=== PATIENT | female | born 1995 | race Caucasian/White ===

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

== ENCOUNTER → 2018-06-14 | Outpatient (CLI) | payer OTHER ==
--- NOTE | 2018-06-14 11:59 | US ---
EXAMINATION TYPE: Transabdominal DATE OF EXAM: 06/14/2018 10:35 AM COMPARISON: NONE CLINICAL HISTORY: O46.91 BLEEDING/SPOTTING. spotting x 1 day, red in color, no pain, A1 EXAM PERFORMED: OBTA EXAM MEASUREMENTS: GESTATIONAL AGE / DATING Physician Established: (8 weeks/4 days) EDC: 01/20/2019 Dates by LMP: (8 weeks/4 days) EDC: 01/20/2019 Dates by First Scan: No previous here Dates by Current Scan for: (8 weeks/1 days) EDC: 01/23/2019 MATERNAL ANATOMY Uterus: 7.0 x 6.3 x 3.7cm Right Ovary: 3.0 x 2.9 x 2.9cm Left Ovary: 2.9 x 2.0 x 2.1cm Post CDS / Adnexa: wnl Presence of free fluid: no Presence of corpus luteal cyst: no Presence of subchorionic bleed: no GESTATION / SURVEY CRL: 1.7cm (8 weeks/1 days) MSD: wnl Yolk Sac (normal less than 6mm): 0.2cm Heart Rate: 161 bpm Rhythm: Normal IUP: Viable IUP Date of LMP: 04/15/2018 Beta HcG (if available): not available *tech impression to voice mail at office and sent patient back to office. IMPRESSION: Single viable intrauterine corresponding to ultrasound age 8 weeks 1 day with estimated kev e of delivery 01/23/2019
== END ==
LOC: RADUSWWP 10:15
PROVIDERS: ATTEND Obstetrics & Gynecology
DX: O20.0 Threatened abortion (principal)
CPT/HCPCS: 36415; 76801; 84702; 86850; 86900; 86901

== ENCOUNTER 2018-06-20 01:35 | Emergency (ER) | payer OTHER ==
[2018-06-20 01:54] VITALS: RESP 16; TEMP 98.1
--- NOTE | 2018-06-20 02:04 | ED ---
General Adult HPI - General Chief complaint: Vaginal Bleeding Stated complaint: 9 Weeks Spotting Cramping Source: patient Mode of arrival: ambulatory Limitations: no limitations - History of Present Illness Initial comments: Kayla is a female currently 9w3d with single intrauterine who presents today for evaluation of persistent vaginal bleeding and cramping. Patient reports that she's had vaginal bleeding for 8 days, she was evaluated in our ER 6 days ago which time ultrasound confirms single intrauterine at 8 weeks and 1 day. Patient reports that since that time she's had persistent bleeding but today she had worsening cramping and begin passing larger clots. This prompted the patient come back to the ER for evaluation. Patient has been one time before, she miscarried in her fourth week of with her previous . Patient denies any dysuria or hematuria. She denies any change in bowel or b ladder habits. She had her first visit with [facility] [employer] [facility] earlier this month, she contacted them earlier today and advised them of her persistent bleeding and they stated that based on having a ultrasound last week she didn't require repeat ultrasound. - Related Data Home Medications Medication Instructions Recorded Confirmed 114/Iron A-G/Folate 1 1 each PO DAILY 06/20/18 06/20/18 [Prenate Elite Tablet] Allergies Allergy/AdvReac Type Severity Reaction Status Date / Time cinnamon Allergy Unknown Verified 06/20/18 01:54 morphine AdvReac Nausea & Verified 06/20/18 01:54 Vomiting Review of Systems ROS Statement: Those systems with pertinent positive or pertinent negative responses have been documented in the HPI. ROS Other: All systems not noted in ROS Statement are negative. Past Medical History Past Medical History: Asthma Additional Past Medical History / Comment(s): UTI, migraine History of Any Multi-Drug Resistant Organisms: None Reported Past Surgical History: Tonsillectomy Past Anesthesia/Blood Transfusion Reactions: No Reported Reaction Past Psychological History: Anxiety, Depression, Schizophrenia Smoking Status: Current every day smoker Past Alcohol Use History: None Reported Past Drug Use History: None Reported - Past Family History Father Family Medical History: No Reported History Additional Family Medical History / Comment(s): Father is healthy Mother Family Medical History: No Reported History Additional Family Medical History / Comment(s): Mother is healthy General Exam - General Exam Comments Initial Comments: Physical Exam GENERAL: Patient is well-developed and well-nourished. Patient is nontoxic and well- hydrated and is in no distress. HENT: Normocephalic, Atraumatic. EYES: PERRL, EOMI PULMONARY: Unlabored respirations. No audible rales rhonchi or wheezing was noted. CARDIOVASCULAR: There is a regular rate and rhythm without any murmurs gallops or rubs. ABDOMEN: Soft and nontender with normal bowel sounds. SKIN: Skin is clear with no lesions or rashes and otherwise unremarkable. : Normal external genitalia Dark blood in the vaginal vault, products of conception in the vaginal vault, os is open 1 cm NEUROLOGIC: Patient is alert and oriented x3. Moving all extremities spontaneously MUSCULOSKELETAL: Normal extremities with adequate strength and full range of motion. No lower extremity swelling or edema. No calf tenderness. PSYCHIATRIC: Normal psychiatric evaluation. Limitations: no limitations Limitations: no limitations Course Vital Signs 06/20/18 06/20/18 01:50 03:22 Temperature 98.1 F Pulse Rate 65 81 Respiratory 16 16 Rate Blood Pressure 97/62 113/72 O2 Sat by Pulse 100 Oximetry Medical Decision Making - Medical Decision Making Patient was seen and evaluated history was obtained from the patient and review of medical record Repeat beta-hCG was ordered Bedside ultrasound did not reveal any obvious gestational sac Pelvic exam was performed approximately one hour after initial ultrasound Patient reports that she had severe cramping after the ultrasound however she is more comfortable now. She's been laying in bed. Upon placing the vaginal speculum in the vaginal vault products of conception were noted to be in the vaginal vault. They were removed. Cervical os is open to approximately 1 cm, at this time I advised the patient that she's likely miscarried. Advised that she will probably have continued vaginal bleeding similar to a heavy period. Advised her to follow-up for her formal ultrasound as scheduled and to follow-up with her solid surface fabricator. All questions pertaining care were answered return parameters were discussed patient was discharged home in stable condition. - Lab Data Lab Results 06/20/18 06/20/18 Range/Units 02:25 02:25 HCG, Quant 9101.3 mIU/mL Urine Color Light Yellow Urine Appearance Clear (Clear) Urine pH 6.0 (5.0-8.0) Ur Specific [place] 1.007 (1.001-1.035) Urine Protein Negative (Negative) Urine Glucose (UA) Negative (Negative) Urine Ketones Negative (Negative) Urine Blood Moderate H (Negative) Urine Nitrite Negative (Negative) Urine Bilirubin Negative (Negative) Urine Urobilinogen <2.0 (<2.0) mg/dL Ur Leukocyte Esterase Small H (Negative) Urine RBC 70 H (0-5) /hpf Urine WBC 2 (0-5) /hpf Ur Squamous Epith Cells <1 (0-4) /hpf Urine Bacteria Rare H (None) /hpf Urine Mucus Rare H (None) /hpf Disposition Clinical Impression: Miscarriage Disposition: HOME SELF-CARE Condition: Stable Instructions (If sedation given, give patient instructions): Miscarriage (ED) Is patient prescribed a controlled substance at d/c from ED?: No Referrals: Ofelia Lara DO [Primary Care Provider] - 1-2 days
[2018-06-20 03:11] LABS: Appearance,Urine Clear (Clear); Bacteria,Urine Rare /hpf; Bilirubin,Urine Negative (Negative); Blood,Urine Moderate (Negative); Color,Urine Light Yellow; Glucose,Urine (UA) Negative (Negative); Ketones,Urine Negative (Negative); Leukocyte Esterase,Urine Small (Negative); Mucus,Urine Rare /hpf; Nitrite,Urine Negative (Negative); Protein,Urine Negative (Negative); RBC,Urine 70 /hpf (0-5); Specific Gravity,Urine 1.007 (1.001-1.035); Squamous Epithelial Cell,Urine <1 /hpf (0-4); Urobilinogen,Urine <2.0 mg/dL (<2.0); WBC,Urine 2 /hpf (0-5)
[2018-06-20 03:24] VITALS: BP 113/72; PULSE 81
== END 2018-06-20 03:30 | disposition home or self-care (01) ==
LOC: EC 01:35
DX: O03.9 Complete or unspecified spontaneous abortion without complication (principal); F17.200 Nicotine dependence, unspecified, uncomplicated; Z88.5 Allergy status to narcotic agent; Z91.018 Allergy to other foods
CPT/HCPCS: 36415; 81001; 84702; 99284

== ENCOUNTER → 2018-07-01 | Outpatient (CLI) | payer OTHER | END | disposition home or self-care (01) | LOC: LABWHC1 10:15 | PROVIDERS: ATTEND Obstetrics & Gynecology | DX: O03.9 Complete or unspecified spontaneous abortion without complication (principal) | CPT/HCPCS: 36415; 84702 ==

== ENCOUNTER 2018-11-15 18:55 | Emergency (ER) | payer OTHER ==
[2018-11-15 19:04] VITALS: PULSE 100
--- NOTE | 2018-11-15 20:05 | ED ---
Female Urogenital HPI - General Chief complaint: Vaginal Bleeding Stated complaint: /bleeding Source: patient Mode of arrival: ambulatory Limitations: no limitations - History of Present Illness Initial comments: A2 23-year-old female presenting today for chief complaint of bleeding in . She states the past 2-3 days she has had light spotting. Today she states is slightly heavier. She states is bright red blood. Patient was concerned as she has had 2 previous miscarriages that she was having a spontaneous and presents emergency department for evaluation. Patient states she does not have significant pain she states at times there is mild cramping this is not unilateral or severe. Patient denies any back pain vomiting diarrhea fevers or any other concerning signs or symptoms. Patient states she has established care with Dr. Ramirez, and has an already confirmed intrauterine outpatient. Patient states she had an ultrasound last week which measured 7 weeks. Remaining review of system negative patient denies dysuria urgency frequency. Upon arrival patient appears well no signs of acute distress. Vital signs within acceptable limits. - Related Data Home Medications Medication Instructions Recorded Confirmed 114/Iron A-G/Folate 1 1 each PO DAILY 06/20/18 06/20/18 [Prenate Elite Tablet] Allergies Allergy/AdvReac Type Severity Reaction Status Date / Time cinnamon Allergy Unknown Verified 11/15/18 19:04 morphine AdvReac Nausea & Verified 11/15/18 19:04 Vomiting Review of Systems ROS Statement: Those systems with pertinent positive or pertinent negative responses have been documented in the HPI. ROS Other: All systems not noted in ROS Statement are negative. Past Medical History Past Medical History: Asthma, Thyroid Disorder Additional Past Medical History / Comment(s): UTI, migraine History of Any Multi-Drug Resistant Organisms: None Reported Past Surgical History: Tonsillectomy Past Anesthesia/Blood Transfusion Reactions: No Reported Reaction Past Psychological History: Anxiety, Depression, Schizophrenia Smoking Status: Current every day smoker Past Alcohol Use History: None Reported Past Drug Use History: None Reported - Past Family History Father Family Medical History: No Reported History Additional Family Medical History / Comment(s): Father is healthy Mother Family Medical History: No Reported History Additional Family Medical History / Comment(s): Mother is healthy General Exam - General Exam Comments Initial Comments: General: The patient is awake and alert, in no distress, and does not appear acutely ill. Eye: Pupils are equal, round and reactive to light, extra-ocular movements are intact. No nystagmus. There is normal conjunctiva bilaterally. No signs of icterus. Ears, nose, mouth and throat: There are moist mucous membranes and no oral lesions. Neck: The neck is supple, there is no tenderness or JVD. Cardiovascular: There is a regular rate and rhythm. No murmur, rub or gallop is appreciated. Respiratory: Lungs are clear to auscultation, respirations are non-labored, breath sounds are equal. No wheezes, stridor, rales, or rhonchi. Gastrointestinal: Soft, non-distended, non-tender abdomen without masses or organomegaly noted. There is no rebound or guarding present. Pelvic: No external lesions scant amount of blood in vaginal vault. Os closed. No cervical motion or adnexal tenderness. No vaginal discharge or vaginal orders. Musculoskeletal: Normal ROM, no tenderness. Strength 5/5. Sensation intact. Pulses equal bilaterally 2+. Neurological: A&O x 3. CN II-XII intact, There are no obvious motor or sensory deficits. Coordination appears grossly intact. Speech is normal. Skin: Skin is warm and dry and no rashes or lesions are noted. Psychiatric: Cooperative, appropriate mood & affect, normal judgment. Limitations: no limitations Course Vital Signs 11/15/18 11/15/18 19:01 21:37 Temperature 99.3 F 99 F Pulse Rate 100 100 Respiratory 18 70 H Rate Blood Pressure 110/74 93/58 O2 Sat by Pulse 99 99 Oximetry Medical Decision Making - Medical Decision Making 23-year-old female presenting for evaluation of vaginal bleeding. Subchorionic hemorrhage on ultrasound. Otherwise no complicated processing at this time. HCG increasing from previous values. No evidence of ectopic . Patient has no significant pain. Patient has no pain on bimanual or pelvic examination. Patient has had outpatient STI testing. Patient has established [facility] MAKER. At this time feel the subchorionic hemorrhage as a cause of bleeding. We discussed threatened . I discussed the importance of follow-up with Dr. Ramirez return for increasing pain or heavy bleeding. Patient verbalized understanding and was discharged appearing well,hemodynamically stable. - Lab Data Result diagrams: 11/15/18 19:55 11/15/18 19:55 Lab Results 08/16/19 08/16/19 08/16/19 Range/Units 19:55 19:55 19:55 WBC 7.4 (3.8-10.6) k/uL RBC 4.34 (3.80-5.40) m/uL Hgb 12.6 (11.4-16.0) gm/dL Hct 38.0 (34.0-46.0) % MCV 87.5 (80.0-100.0) fL MCH 28.9 (25.0-35.0) pg MCHC 33.0 (31.0-37.0) g/dL RDW 12.6 (11.5-15.5) % Plt Count 186 (150-450) k/uL Neutrophils % 59 % Lymphocytes % 33 % Monocytes % 4 % Eosinophils % 2 % Basophils % 1 % Neutrophils # 4.3 (1.3-7.7) k/uL Lymphocytes # 2.4 (1.0-4.8) k/uL Monocytes # 0.3 (0-1.0) k/uL Eosinophils # 0.1 (0-0.7) k/uL Basophils # 0.1 (0-0.2) k/uL Sodium 140 (137-145) mmol/L Potassium 3.8 (3.5-5.1) mmol/L Chloride 105 (98-107) mmol/L Carbon Dioxide 25 (22-30) mmol/L Anion Gap 10 mmol/L BUN 6 L (7-17) mg/dL Creatinine 0.59 (0.52-1.04) mg/dL Est GFR (CKD-EPI)AfAm >90 (>60 ml/min/1.73 sqM) Est GFR (CKD-EPI)NonAf >90 (>60 ml/min/1.73 sqM) Glucose 91 (74-99) mg/dL Calcium 9.4 (8.4-10.2) mg/dL Total Bilirubin 0.4 (0.2-1.3) mg/dL AST 22 (14-36) U/L ALT 18 (9-52) U/L Alkaline Phosphatase 66 (38-126) U/L Total Protein 7.3 (6.3-8.2) g/dL Albumin 4.6 (3.5-5.0) g/dL HCG, Quant 17245.9 mIU/mL Urine Color Urine Appearance (Clear) Urine pH (5.0-8.0) Ur Specific [place] (1.001-1.035) Urine Protein (Negative) Urine Glucose (UA) (Negative) Urine Ketones (Negative) Urine Blood (Negative) Urine Nitrite (Negative) Urine Bilirubin (Negative) Urine Urobilinogen (<2.0) mg/dL Ur Leukocyte Esterase (Negative) Urine RBC (0-5) /hpf Urine WBC (0-5) /hpf Ur Squamous Epith Cells (0-4) /hpf Urine Bacteria (None) /hpf Urine Mucus (None) /hpf Blood Type A Positive Blood Type Recheck No Antibody Screen NEGATIVE Spec Expiration Date 11/18/2018 - 235411/15/18 Range/Units Unknown WBC (3.8-10.6) k/uL RBC (3.80-5.40) m/uL Hgb (11.4-16.0) gm/dL Hct (34.0-46.0) % MCV (80.0-100.0) fL MCH (25.0-35.0) pg MCHC (31.0-37.0) g/dL RDW (11.5-15.5) % Plt Count (150-450) k/uL Neutrophils % % Lymphocytes % % Monocytes % % Eosinophils % % Basophils % % Neutrophils # (1.3-7.7) k/uL Lymphocytes # (1.0-4.8) k/uL Monocytes # (0-1.0) k/uL Eosinophils # (0-0.7) k/uL Basophils # (0-0.2) k/uL Sodium (137-145) mmol/L Potassium (3.5-5.1) mmol/L Chloride (98-107) mmol/L Carbon Dioxide (22-30) mmol/L Anion Gap mmol/L BUN (7-17) mg/dL Creatinine (0.52-1.04) mg/dL Est GFR (CKD-EPI)AfAm (>60 ml/min/1.73 sqM) Est GFR (CKD-EPI)NonAf (>60 ml/min/1.73 sqM) Glucose (74-99) mg/dL Calcium (8.4-10.2) mg/dL Total Bilirubin (0.2-1.3) mg/dL AST (14-36) U/L ALT (9-52) U/L Alkaline Phosphatase (38-126) U/L Total Protein (6.3-8.2) g/dL Albumin (3.5-5.0) g/dL HCG, Quant mIU/mL Urine Color Light Yellow Urine Appearance Clear (Clear) Urine pH 7.0 (5.0-8.0) Ur Specific [place] 1.007 (1.001-1.035) Urine Protein Negative (Negative) Urine Glucose (UA) Negative (Negative) Urine Ketones Negative (Negative) Urine Blood Small H (Negative) Urine Nitrite Negative (Negative) Urine Bilirubin Negative (Negative) Urine Urobilinogen <2.0 (<2.0) mg/dL Ur Leukocyte Esterase Negative (Negative) Urine RBC <1 (0-5) /hpf Urine WBC 2 (0-5) /hpf Ur Squamous Epith Cells 1 (0-4) /hpf Urine Bacteria Rare H (None) /hpf Urine Mucus Rare H (None) /hpf Blood Type Blood Type Recheck Antibody Screen Spec Expiration Date Disposition Clinical Impression: Subchorionic bleed, Vaginal bleeding during Disposition: HOME SELF-CARE Condition: Good Instructions (If sedation given, give patient instructions): Subchorionic Hemorrhage (ED) Additional Instructions: Please use medication as discussed. Please follow-up with OBGYN next week. Please return to emergency room if the symptoms increase or worsen or for any other concerns. Is patient prescribed a controlled substance at d/c from ED?: No Referrals: Ofelia Lara DO [Primary Care Provider] - 1-2 days Jennifer Ramirez MD [STAFF PHYSICIAN] - 1-2 days Time of Disposition: 21:12
[2018-11-15 20:07] LABS: Basophils # (A) 0.1 k/uL (0-0.2); Basophils % (A) 1 %; Eosinophils # (A) 0.1 k/uL (0-0.7); Eosinophils % (A) 2 %; HGB 12.6 gm/dL (11.4-16.0); Lymphocytes # (A) 2.4 k/uL (1.0-4.8); Lymphocytes % (A) 33 %; MCH 28.9 pg (25.0-35.0); MCV 87.5 fL (80.0-100.0); Mean Platelet Volume 7.5; Monocytes # (A) 0.3 k/uL (0-1.0); Monocytes % (A) 4 %; Neutrophils # (A) 4.3 k/uL (1.3-7.7); Neutrophils % (A) 59 %; Platelet Count 186 k/uL (150-450); RBC 4.34 m/uL (3.80-5.40); RDW 12.6 % (11.5-15.5); WBC 7.4 k/uL (3.8-10.6)
[2018-11-15 20:17] LABS: ALT 18 U/L (9-52); AST 22 U/L (14-36); African American GFR (CKD) >90 (>60 ml/min/1.73 sqM); Albumin 4.6 g/dL (3.5-5.0); Alkaline Phosphatase 66 U/L (38-126); Anion Gap 10 mmol/L; Blood Urea Nitrogen 6 mg/dL (7-17); Calcium 9.4 mg/dL (8.4-10.2); Carbon Dioxide 25 mmol/L (22-30); Chloride 105 mmol/L (98-107); Glucose 91 mg/dL (74-99); Potassium 3.8 mmol/L (3.5-5.1); Sodium 140 mmol/L (137-145); Total Bilirubin 0.4 mg/dL (0.2-1.3); Total Protein 7.3 g/dL (6.3-8.2)
[2018-11-15 20:56] LABS: HCG,Quantitative Serum 19631.9 mIU/mL
--- NOTE | 2018-11-15 21:09 | US ---
EXAMINATION TYPE: OB <= 14 wk transvag DATE OF EXAM: 11/15/2018 8:49 PM COMPARISON: NONE CLINICAL HISTORY: Vaginal bleeding x 3 days in ; ; smoker EXAM PERFORMED: Transabdominal (TA) with limited supplemental TV US pictures to assess CRL. EXAM MEASUREMENTS: GESTATIONAL AGE / DATING Physician Established: (8 weeks/3 days) EDC: 06/24/2019 Dates by LMP: (8 weeks/3 days) EDC: 06/24/2019 Dates by First Scan: No previous. Dates by Current Scan for: (7 weeks/6 days) EDC: 06/28/2019 MATERNAL ANATOMY Uterus: 8.2 x 4.8 x 4.4cm Right Ovary: 2.5 x 2.0 x 1.4cm Left Ovary: 3.9 x 1.7 x 1.9cm Post CDS / Adnexa: wnl Presence of free fluid: no Presence of corpus luteal cyst: in left ovary = 2.3 x1.8 x 1.7cm Presence of subchorionic bleed: yes, superior to gestational sac = 0.7x 0.3 x 0.2cm ; multiple small cysts seen mid decidual area with largest = 0.4 x 0.4 x 0.2cm. GESTATION / SURVEY CRL: 1.5cm (7 weeks/6 days) Yolk Sac (normal less than 6mm): 3.0mm Heart Rate: 176 bpm TV US Rhythm: Normal IUP: single Date of LMP: 09/17/2018 Beta HcG (if available): NA Single, live IUP, 7 weeks/6 days, EDC: 06/28/2019, HR 176bpm; presence of small subchorionic hemorrhage is noted superior to gestational sac. IMPRESSION: The ultrasound gestational age is 7 weeks and 6 days. There is a 3 mm fluid collection consistent with tiny subchorionic hemorrhage. MTDD
[2018-11-15 21:15] LABS: Appearance,Urine Clear (Clear); Bacteria,Urine Rare /hpf; Bilirubin,Urine Negative (Negative); Blood,Urine Small (Negative); Color,Urine Light Yellow; Glucose,Urine (UA) Negative (Negative); Ketones,Urine Negative (Negative); Leukocyte Esterase,Urine Negative (Negative); Mucus,Urine Rare /hpf; Nitrite,Urine Negative (Negative); Protein,Urine Negative (Negative); RBC,Urine <1 /hpf (0-5); Specific Gravity,Urine 1.007 (1.001-1.035); Squamous Epithelial Cell,Urine 1 /hpf (0-4); Urobilinogen,Urine <2.0 mg/dL (<2.0); WBC,Urine 2 /hpf (0-5)
[2018-11-15 21:39] VITALS: BP 93/58; RESP 70; TEMP 99
== END 2018-11-15 21:42 | disposition home or self-care (01) ==
LOC: EC 18:55
DX: O20.8 Other hemorrhage in early pregnancy (principal); O99.331 Smoking (tobacco) complicating pregnancy, first trimester; F17.200 Nicotine dependence, unspecified, uncomplicated; Z88.5 Allergy status to narcotic agent; Z91.018 Allergy to other foods; Z87.59 Personal history of other complications of pregnancy, childbirth and the puerperium; Z3A.01 Less than 8 weeks gestation of pregnancy
CPT/HCPCS: 36415; 76801; 76817; 80053; 81001; 84702; 85025; 86850; 86900; 86901; 99284

== ENCOUNTER 2018-11-18 22:55 | Observation (INO) | payer OTHER ==
[2018-11-19] MEDS ORDERED: SODIUM CHLORIDE 0.9% 500 ML 500 ML IV ONE ×2 (00:01→05:25)
[2018-11-19] MEDS ORDERED: ACETAMINOPHEN TAB 500 MG TAB PO STA (00:02)
[2018-11-19 00:29] LABS: Basophils # (A) 0.1 k/uL (0-0.2); Basophils % (A) 1 %; Eosinophils # (A) 0.2 k/uL (0-0.7); Eosinophils % (A) 2 %; HCT 37.1 % (34.0-46.0); HGB 12.5 gm/dL (11.4-16.0); Lymphocytes # (A) 2.7 k/uL (1.0-4.8); Lymphocytes % (A) 31 %; MCHC 33.8 g/dL (31.0-37.0); MCV 85.8 fL (80.0-100.0); Mean Platelet Volume 7.8; Monocytes # (A) 0.4 k/uL (0-1.0); Monocytes % (A) 4 %; Neutrophils # (A) 5.1 k/uL (1.3-7.7); Neutrophils % (A) 60 %; Platelet Count 200 k/uL (150-450); RBC 4.32 m/uL (3.80-5.40); RDW 12.7 % (11.5-15.5); WBC 8.6 k/uL (3.8-10.6)
[2018-11-19 00:31] LABS: Appearance,Urine Cloudy (Clear); Bilirubin,Urine Negative (Negative); Blood,Urine Large (Negative); Color,Urine Red; Glucose,Urine (UA) Negative (Negative); Ketones,Urine Negative (Negative); Leukocyte Esterase,Urine Small (Negative); Nitrite,Urine Negative (Negative); Protein,Urine 2+ (Negative); RBC,Urine >182 /hpf (0-5); Specific Gravity,Urine 1.006 (1.001-1.035); Squamous Epithelial Cell,Urine <1 /hpf (0-4); Urobilinogen,Urine <2.0 mg/dL (<2.0); WBC,Urine 9 /hpf (0-5)
[2018-11-19 00:34] LABS: ALT 14 U/L (9-52); AST 19 U/L (14-36); African American GFR (CKD) >90 (>60 ml/min/1.73 sqM); Albumin 4.4 g/dL (3.5-5.0); Alkaline Phosphatase 62 U/L (38-126); Anion Gap 9 mmol/L; Blood Urea Nitrogen 5 mg/dL (7-17); Calcium 9.1 mg/dL (8.4-10.2); Carbon Dioxide 25 mmol/L (22-30); Chloride 107 mmol/L (98-107); Glucose 89 mg/dL (74-99); Potassium 3.6 mmol/L (3.5-5.1); Sodium 141 mmol/L (137-145); Total Bilirubin <0.1 mg/dL (0.2-1.3); Total Protein 6.9 g/dL (6.3-8.2)
[2018-11-19 00:35] LABS: Partial Thromboplastin Time 23.9 sec (22.0-30.0); Prothrombin Time 10.3 sec (9.0-12.0)
[2018-11-19] MEDS ORDERED: ONDANSETRON 4 MG/2 ML VIAL IVP STA (01:14)
[2018-11-19] MEDS ORDERED: MORPHINE SULFATE 4 MG/ML SYRINGE IVP STA (01:14)
[2018-11-19 01:24] LABS: HCG,Quantitative Serum 21217.3 mIU/mL
[2018-11-19] MEDS ORDERED: HYDROmorphone 0.5 MG/0.5 ML SYRINGE IVP STA ×3 (02:14→04:07)
--- NOTE | 2018-11-19 02:36 | US ---
EXAM: US , Transvaginal CLINICAL HISTORY: pain TECHNIQUE: Real-time transvaginal obstetrical ultrasound of the maternal pelvis and a first trimester with image documentation. Transvaginal imaging was used for better evaluation of the fetus and adnexa. COMPARISON: No relevant prior studies available. FINDINGS: Gestation: There is no evidence for previously identified gestation. The endometrium is heterogeneous with no evidence for identifiable products of conception. Uterus/cervix: 7.8 x 4.0 x 4.8 cm. Possible bicornuate uterus is suggested on sagittal imaging Ovaries: 3.3 x 2.5 x 1.6 cm. The left adnexa is heterogeneous in appearance. This of uncertain etiology. The left ovary is not identified. Free fluid: No free fluid. IMPRESSION: No evidence for gestational sac demonstrated within the uterus. The findings suggestive of missed spontaneous AB Heterogeneous appearance to the region of the left adnexa and the left ovary is not identified. The right ovary is normal in appearance. 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
--- NOTE | 2018-11-19 03:22 | ED ---
General Adult HPI <Delroy Chan - Last Filed: 11/19/18 04:17> - General Source: patient Mode of arrival: ambulatory Limitations: no limitations <Syl Nava - Last Filed: 11/19/18 04:41> - General Chief complaint: Vaginal Bleeding Stated complaint: Vaginal Bleeding 9 weeks Preg Time Seen by Provider: 11/18/18 23:05 - History of Present Illness Initial comments: 23-year-old female patient presents to the emergency department today for evaluation of vaginal bleeding and passage of clots in early . 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 Patient states she has been having spotting for the last 4 days. She was evaluated here and diagnosed with a small subchorionic hemorrhage, with a viable intrauterine measuring 7 weeks 6 days. Patient states about an hour prior to arrival she developed heavy bleeding, severe lower abdominal pain, and passage of 2 large clots the size of golf balls. She denies any low back pain. Denies fever or chills. Denies any hematuria, dysuria, urinary urgency, or urinary frequency. Patient states that she did [facility] over a week ago. Her next appointment is not until December 04. Patient denies any recent rash, shortness breath, chest pain, abdominal pain, nausea, vomiting, diarrhea, constipation, numbness, tingling, dizziness, weakness, headache, visual changes, or any other complaints. (Syl Nava) - Related Data Home Medications Medication Instructions Recorded Confirmed 114/Iron A-G/Folate 1 1 each PO DAILY 06/20/18 06/20/18 [Prenate Elite Tablet] Allergies Allergy/AdvReac Type Severity Reaction Status Date / Time cinnamon Allergy Unknown Verified 11/18/18 23:03 morphine AdvReac Nausea & Verified 11/18/18 23:03 Vomiting Review of Systems ROS Other: All systems not noted in ROS Statement are negative. <Delroy Chan - Last Filed: 11/19/18 04:17> ROS Other: All systems not noted in ROS Statement are negative. <Syl Nava - Last Filed: 11/19/18 04:41> ROS Statement: Those systems with pertinent positive or pertinent negative responses have been documented in the HPI. Past Medical History Past Medical History: Asthma, Thyroid Disorder Additional Past Medical History / Comment(s): UTI, migraine History of Any Multi-Drug Resistant Organisms: None Reported Past Surgical History: Cholecystectomy, Tonsillectomy Past Anesthesia/Blood Transfusion Reactions: No Reported Reaction Past Psychological History: Anxiety, Depression, Schizophrenia Smoking Status: Former smoker Past Alcohol Use History: Occasional Past Drug Use History: None Reported - Past Family History Father Family Medical History: No Reported History Additional Family Medical History / Comment(s): Father is healthy Mother Family Medical History: No Reported History Additional Family Medical History / Comment(s): Mother is healthy <Syl Nava M - Last Filed: 11/19/18 04:41> General Exam Limitations: no limitations General appearance: alert, in no apparent distress, other (Physical well- developed, well-nourished adult female patient in mild distress related to pain. Vital signs upon presentation are temperature 98.6F, pulse 123, respirations 18, blood pressure 121/77, pulse ox 99% on room air.) Eye exam: Present: normal appearance, PERRL, EOMI. Absent: scleral icterus, conjunctival injection, periorbital swelling ENT exam: Present: normal exam, normal oropharynx, mucous membranes moist Respiratory exam: Present: normal lung sounds bilaterally. Absent: respiratory distress, wheezes, rales, rhonchi, stridor Cardiovascular Exam: Present: regular rate, normal rhythm, normal heart sounds. Absent: systolic murmur, diastolic murmur, rubs, gallop, clicks GI/Abdominal exam: Present: soft, tenderness (Suprapubic tenderness), normal bowel sounds. Absent: distended, guarding, rebound, rigid External exam: Present: normal external exam Speculum exam: Present: vaginal bleeding (Mild dark red), other (no debris noted to the cervical os). Absent: normal speculum exam By manual exam: Present: other (unable to tolerate bimanual due to pain) Neurological exam: Present: alert, oriented X3, CN II-XII intact Psychiatric exam: Present: normal affect, normal mood Skin exam: Present: warm, dry, intact, normal color. Absent: rash <Syl Nava M - Last Filed: 11/19/18 04:41> Course Vital Signs 11/18/18 11/19/18 11/19/18 22:59 02:42 02:56 Temperature 98.6 F Pulse Rate 123 H 71 Respiratory 18 18 Rate Blood Pressure 121/77 92/58 94/59 O2 Sat by Pulse 99 96 Oximetry 11/19/18 11/19/18 03:20 04:15 Temperature Pulse Rate 111 H Respiratory 19 Rate Blood Pressure 110/77 98/64 O2 Sat by Pulse 97 Oximetry Medical Decision Making - Lab Data Result diagrams: 11/19/18 00:15 11/19/18 00:15 <Delroy Chan - Last Filed: 11/19/18 04:17> - Lab Data Result diagrams: 11/19/18 00:15 11/19/18 00:15 - Radiology Data Radiology results: report reviewed <Syl Nava - Last Filed: 11/19/18 04:41> - Medical Decision Making I saw this patient in conjunction with the physician physical therapist assistant. I performed independent history and physical exam. Agree with case management. (Delroy Chan) 23-year-old female patient presented to the emergency department today for evaluation of severe lower abdominal cramping and passage of blood clots an early . She is . Patient's physical examination did reveal lower abdominal tenderness. Ultrasound was obtained and did reveal evidence for missed spontaneous with some heterogeneity noted in the left adnexa. Patient was given several doses of pain medication here in the emergency department with minimal relief. I did discuss findings and results with the patient. My attending was in to evaluate the patient and discussed the case with Dr. Masters who will admit for observation. She recommends IV cadolor for pain relief. Patient agrees with this plan. (Syl Nava) - Lab Data Lab Results 11/19/18 11/19/18 11/19/18 Range/Units 00:15 00:15 00:15 WBC 8.6 (3.8-10.6) k/uL RBC 4.32 (3.80-5.40) m/uL Hgb 12.5 (11.4-16.0) gm/dL Hct 37.1 (34.0-46.0) % MCV 85.8 (80.0-100.0) fL MCH 29.0 (25.0-35.0) pg MCHC 33.8 (31.0-37.0) g/dL RDW 12.7 (11.5-15.5) % Plt Count 200 (150-450) k/uL Neutrophils % 60 % Lymphocytes % 31 % Monocytes % 4 % Eosinophils % 2 % Basophils % 1 % Neutrophils # 5.1 (1.3-7.7) k/uL Lymphocytes # 2.7 (1.0-4.8) k/uL Monocytes # 0.4 (0-1.0) k/uL Eosinophils # 0.2 (0-0.7) k/uL Basophils # 0.1 (0-0.2) k/uL PT 10.3 (9.0-12.0) sec INR 1.0 (<1.2) APTT 23.9 (22.0-30.0) sec Sodium 141 (137-145) mmol/L Potassium 3.6 (3.5-5.1) mmol/L Chloride 107 (98-107) mmol/L Carbon Dioxide 25 (22-30) mmol/L Anion Gap 9 mmol/L BUN 5 L (7-17) mg/dL Creatinine 0.58 (0.52-1.04) mg/dL Est GFR (CKD-EPI)AfAm >90 (>60 ml/min/1.73 sqM) Est GFR (CKD-EPI)NonAf >90 (>60 ml/min/1.73 sqM) Glucose 89 (74-99) mg/dL Calcium 9.1 (8.4-10.2) mg/dL Total Bilirubin <0.1 L (0.2-1.3) mg/dL AST 19 (14-36) U/L ALT 14 (9-52) U/L Alkaline Phosphatase 62 (38-126) U/L Total Protein 6.9 (6.3-8.2) g/dL Albumin 4.4 (3.5-5.0) g/dL HCG, Quant 79698.3 mIU/mL Urine Color Urine Appearance (Clear) Urine pH (5.0-8.0) Ur Specific [place] (1.001-1.035) Urine Protein (Negative) Urine Glucose (UA) (Negative) Urine Ketones (Negative) Urine Blood (Negative) Urine Nitrite (Negative) Urine Bilirubin (Negative) Urine Urobilinogen (<2.0) mg/dL Ur Leukocyte Esterase (Negative) Urine RBC (0-5) /hpf Urine WBC (0-5) /hpf Ur Squamous Epith Cells (0-4) /hpf 11/19/18 Range/Units 00:15 WBC (3.8-10.6) k/uL RBC (3.80-5.40) m/uL Hgb (11.4-16.0) gm/dL Hct (34.0-46.0) % MCV (80.0-100.0) fL MCH (25.0-35.0) pg MCHC (31.0-37.0) g/dL RDW (11.5-15.5) % Plt Count (150-450) k/uL Neutrophils % % Lymphocytes % % Monocytes % % Eosinophils % % Basophils % % Neutrophils # (1.3-7.7) k/uL Lymphocytes # (1.0-4.8) k/uL Monocytes # (0-1.0) k/uL Eosinophils # (0-0.7) k/uL Basophils # (0-0.2) k/uL PT (9.0-12.0) sec INR (<1.2) APTT (22.0-30.0) sec Sodium (137-145) mmol/L Potassium (3.5-5.1) mmol/L Chloride (98-107) mmol/L Carbon Dioxide (22-30) mmol/L Anion Gap mmol/L BUN (7-17) mg/dL Creatinine (0.52-1.04) mg/dL Est GFR (CKD-EPI)AfAm (>60 ml/min/1.73 sqM) Est GFR (CKD-EPI)NonAf (>60 ml/min/1.73 sqM) Glucose (74-99) mg/dL Calcium (8.4-10.2) mg/dL Total Bilirubin (0.2-1.3) mg/dL AST (14-36) U/L ALT (9-52) U/L Alkaline Phosphatase (38-126) U/L Total Protein (6.3-8.2) g/dL Albumin (3.5-5.0) g/dL HCG, Quant mIU/mL Urine Color Red Urine Appearance Cloudy H (Clear) Urine pH 7.0 (5.0-8.0) Ur Specific [place] 1.006 (1.001-1.035) Urine Protein 2+ H (Negative) Urine Glucose (UA) Negative (Negative) Urine Ketones Negative (Negative) Urine Blood Large H (Negative) Urine Nitrite Negative (Negative) Urine Bilirubin Negative (Negative) Urine Urobilinogen <2.0 (<2.0) mg/dL Ur Leukocyte Esterase Small H (Negative) Urine RBC >182 H (0-5) /hpf Urine WBC 9 H (0-5) /hpf Ur Squamous Epith Cells <1 (0-4) /hpf - Radiology Data Transvaginal ultrasound was obtained. Report was reviewed in its entirety. Impression by Dr. Erwin shows no evidence for gestational sac, and should within the uterus. The findings suggestive of missed spontaneous . Enteritis appearance of the region of the left adnexa on the left ovary is not identified. The right ovary is normal appearance. There appears to be a bicornuate uterus. (Syl Nava) Disposition <Delroy Chan - Last Filed: 11/19/18 04:17> Decision to Admit Reason: Admit from EC Decision Date: 11/19/18 Decision Time: 04:41 <Syl Nava - Last Filed: 11/19/18 04:41> Clinical Impression: Spontaneous , Intractable abdominal pain Disposition: ADMITTED IP TO THIS [facility] Condition: Serious Referrals: Ofelia Lara DO [Primary Care Provider] - 1-2 days
[2018-11-19] MEDS ORDERED: IBUPROFEN IV 800 MG in SODIUM CHLORIDE 0.9% 250 ML IV ONE (04:30)
[2018-11-19] MEDS ORDERED: HYDROmorphone 0.5 MG/0.5 ML SYRINGE IVP PRN (04:35)
[2018-11-19] MEDS ORDERED: ONDANSETRON 4 MG/2 ML VIAL IVP PRN (04:35)
[2018-11-19] MEDS ORDERED: NALOXONE 0.4 MG/ML 1 ML VIAL IV PRN (04:35)
[2018-11-19] MEDS ORDERED: SODIUM CHLORIDE 0.9% 1,000 ML IV SCH (04:45)
[2018-11-19 07:44] VITALS: RESP 14; TEMP 98.1
--- NOTE | 2018-11-19 08:51 | P.HPOB ---
History of Present Illness H&P Date: 11/19/18 Chief Complaint: abdominal pain s/p SAB This is a pleasant 23 yo female with known positive test presented to the emergency department last evening with complaints of vaginal bleeding and passage of clots. Patient states she came to the ER with slight bleeding and once there began passing large clots. Patient has a history of 2 spontaneous ABs. Patient was seen previously in the emergency department with a viable IUP measuring 7 weeks 6 days. On ultrasound last evening, confirmation of complete AB was noted. Patient noted her bleeding to be minimal but continued to complain of right lower quadrant pain. Patient denied fevers chills nausea vomiting while in the emergency department or prior to arrival. Patient was placed in the observation unit secondary to this discomfort. Patient was given multiple doses of Dilaudid and morphine in addition. I ordered a dose of The Lower over the Night She States She Is Feeling Mildly Improved This Morning. She Is Been up to the Bathroom and Is Urinating without Difficulty. She Is Tolerating Ice Chips and Denies Nausea or Vomiting This Morning. Review of Systems Constitutional: Reports fatigue, Denies chills, Denies fever Cardiovascular: Denies leg edema Respiratory: Denies dyspnea Gastrointestinal: Denies nausea, Denies vomiting Genitourinary: Reports Past Medical History Past Medical History: Asthma, Thyroid Disorder Additional Past Medical History / Comment(s): UTI, migraine, 3 spontaneous abortions History of Any Multi-Drug Resistant Organisms: None Reported Past Surgical History: Cholecystectomy, Tonsillectomy Past Anesthesia/Blood Transfusion Reactions: No Reported Reaction Past Psychological History: Anxiety, Depression, Schizophrenia Smoking Status: Former smoker Past Alcohol Use History: Occasional Additional Past Alcohol Use History / Comment(s): Pt started smoking one year ago and is a 1/2 ppd smoker. Past Drug Use History: None Reported - Past Family History Father Family Medical History: No Reported History Additional Family Medical History / Comment(s): Father is healthy Mother Family Medical History: No Reported History Additional Family Medical History / Comment(s): Mother is healthy Medications and Allergies Home Medications Medication Instructions Recorded Confirmed Type 114/Iron A-G/Folate 1 1 tab PO DAILY 06/20/18 11/19/18 History [Prenate Elite Tablet] Levothyroxine Sodium 25 mcg PO DAILY 11/19/18 11/19/18 History Allergies Allergy/AdvReac Type Severity Reaction Status Date / Time cinnamon Allergy Unknown Verified 11/19/18 07:46 morphine AdvReac Nausea & Verified 11/19/18 07:46 Vomiting Exam Osteopathic Statement: *. No significant issues noted on an osteopathic structural exam other than those noted in the History and Physical/Consult. Vital Signs Temp Pulse Pulse Resp BP BP Pulse Ox 11/19/18 07:58 70 14 11/19/18 07:51 82/42 11/19/18 07:42 98.1 F 70 14 72/43 98 11/19/18 05:00 83 17 108/56 100 11/19/18 04:15 111 H 19 98/64 97 11/19/18 03:20 110/77 11/19/18 02:56 94/59 11/19/18 02:42 71 18 92/58 96 11/18/18 22:59 98.6 F 123 H 18 121/77 99 Intake and Output 11/18/18 11/19/18 11/19/18 22:59 06:59 14:59 Other: Voiding Method Toilet Toilet Weight 53.977 kg Targeted physical exam was performed on this date in general this is a well- nourished well-developed female in no obvious distress. She is currently resting in the hospital bed with her sister next to her. She notes nonlabored breathing, her heart has a regular rate and rhythm her abdomen is soft there is no guarding or tenderness noted. There is minimal bleeding noted on her pad at this time. Results Result Diagrams: 11/19/18 00:15 11/19/18 00:15 Abnormal Lab Results - Last 24 Hours (Table) 11/19/18 11/19/18 Range/Units 00:15 00:15 BUN 5 L (7-17) mg/dL Total Bilirubin <0.1 L (0.2-1.3) mg/dL Urine Appearance Cloudy H (Clear) Urine Protein 2+ H (Negative) Urine Blood Large H (Negative) Ur Leukocyte Esterase Small H (Negative) Urine RBC >182 H (0-5) /hpf Urine WBC 9 H (0-5) /hpf Assessment and Plan (1) Abdominal pain Current Visit: Yes Status: Acute Code(s): R10.9 - UNSPECIFIED ABDOMINAL PAIN SNOMED Code(s): 57743615 (2) Spontaneous Current Visit: Yes Status: Acute Code(s): O03.9 - COMPLETE OR UNSP SPONTANEOUS WITHOUT COMPLICATION SNOMED Code(s): 43319762 Plan: Given patient is feeling somewhat improved this morning will advance diet to regular, offer her oral pain medication as needed she did just recently received IV caldalor approximately 2 hours ago. I anticipate discharge home later this afternoon.
[2018-11-19] MEDS ORDERED: IBUPROFEN IV 800 MG in SODIUM CHLORIDE 0.9% 250 ML IV PRN (11:00)
[2018-11-19 12:02] VITALS: BP 90/53; PULSE 77
--- NOTE | 2018-11-19 12:52 | P.PN ---
Progress Note - Text Progress Note Date: 11/19/18 Discussion with the nurse after patient was up to the bathroom, she states her pain is improved and is ready for discharge home. Discharge instructions were reviewed with the nurse and placed in the computer as in order. Patient is to see myself in follow-up in 1 week.
[2018-11-19] MEDS ORDERED: IBUPROFEN 600 MG TAB PO STA (12:53)
== END 2018-11-19 13:40 | disposition home or self-care (01) ==
LOC: EC 22:55 → 1SOBS 11-19 04:46
PROVIDERS: ADMIT Obstetrics & Gynecology Obstetrics; ATTEND Obstetrics & Gynecology Obstetrics
DX: O03.9 Complete or unspecified spontaneous abortion without complication (principal); F20.9 Schizophrenia, unspecified; F32.9 Major depressive disorder, single episode, unspecified; F41.9 Anxiety disorder, unspecified; J45.909 Unspecified asthma, uncomplicated; Z87.891 Personal history of nicotine dependence; Z88.5 Allergy status to narcotic agent; Z91.018 Allergy to other foods; Z79.890 Hormone replacement therapy; Z90.49 Acquired absence of other specified parts of digestive tract
CPT/HCPCS: 96365; 96366; 96376; 96361; 96375; 99285; 36415; 80053; 85025; 85610; 85730; 81001; 84702; 76801; 76817; G0378; J2270; J2405; J1741; J1170

== ENCOUNTER 2018-11-27 15:04 | Emergency (ER) | payer OTHER ==
[2018-11-27 15:49] VITALS: RESP 18; TEMP 98.9
--- NOTE | 2018-11-27 17:39 | ED ---
Psych HPI - General Chief Complaint: Psychiatric Symptoms Stated Complaint: Mental Health Source: patient Mode of arrival: ambulatory - History of Present Illness Initial Comments: 23-year-old female history of schizophrenia anxiety and depression presents today for chief complaint of voices in her head, extremities IV and suicidal ideation. Patient states that she had a miscarriage last Sunday. She states that she has history of schizophrenia and has not had voices in quite some time however this seemed to trigger the voices in her head. Patient states she could use of voices she feels suicidal due to this. Patient states she has extreme anxiety depression since the loss of her baby. Patient denies any trauma or abuse currently. Patient has no other complaints. Patient denies abdominal p ain vaginal bleeding nausea vomiting or fevers. Patient states she does have established [employer] care is following him. Remaining review systems negative. Including denial of homicidal ideation. - Related Data Home Medications Medication Instructions Recorded Confirmed Levothyroxine Sodium 25 mcg PO DAILY 11/19/18 11/27/18 Norgestimate-Ethinyl Estradiol 1 tab PO DAILY@199911/27/18 11/27/18 [Sprintec 28 Day Tablet] Allergies Allergy/AdvReac Type Severity Reaction Status Date / Time cinnamon Allergy Unknown Verified 11/27/18 16:22 morphine AdvReac Nausea & Verified 11/27/18 16:22 Vomiting Review of Systems ROS Statement: Those systems with pertinent positive or pertinent negative responses have been documented in the HPI. ROS Other: All systems not noted in ROS Statement are negative. Past Medical History Past Medical History: Asthma, Thyroid Disorder Additional Past Medical History / Comment(s): UTI, migraine, 3 spontaneous abortions History of Any Multi-Drug Resistant Organisms: None Reported Past Surgical History: Cholecystectomy, Tonsillectomy Past Anesthesia/Blood Transfusion Reactions: No Reported Reaction Past Psychological History: Anxiety, Depression, Schizophrenia Smoking Status: Current every day smoker Past Alcohol Use History: Occasional Past Drug Use History: None Reported - Past Family History Father Family Medical History: No Reported History Additional Family Medical History / Comment(s): Father is healthy Mother Family Medical History: No Reported History Additional Family Medical History / Comment(s): Mother is healthy General Exam - General Exam Comments Initial Comments: General: The patient is awake and alert, in no distress, and does not appear a cutely ill. Eye: +3 mm pupils are equal, round and reactive to light, extra-ocular movements are intact. No nystagmus. There is normal conjunctiva bilaterally. No signs of icterus. Ears, nose, mouth and throat: There are moist mucous membranes and no oral lesions. Neck: The neck is supple, there is no tenderness or JVD. Cardiovascular: There is a regular rate and rhythm. No murmur, rub or gallop is appreciated. Respiratory: Lungs are clear to auscultation, respirations are non-labored, breath sounds are equal. No wheezes, stridor, rales, or rhonchi. Gastrointestinal: Soft, non-distended, non-tender abdomen without masses or or ganomegaly noted. There is no rebound or guarding present. Musculoskeletal: Normal ROM, no tenderness. Strength 5/5. Sensation intact. Pulses equal bilaterally 2+. Neurological: A&O x 3. CN II-XII intact, There are no obvious motor or sensory deficits. Coordination appears grossly intact. Speech is normal. Skin: Skin is warm and dry and no rashes or lesions are noted. Psychiatric: Cooperative, tearful Limitations: no limitations Course Vital Signs 11/27/18 11/27/18 15:45 22:49 Temperature 98.9 F Pulse Rate 101 H 79 Respiratory 18 18 Rate Blood Pressure 103/70 97/54 O2 Sat by Pulse 100 98 Oximetry - Reevaluation(s) Reevaluation #1: 11/27/18 20:54 Sign out to Skip at 9PM Medical Decision Making - Medical Decision Making 23-year-old female presenting for voices in her head and depression anxiety and suicidal ideation. No plan. Patient states she has no homicidal ideation. Patient tearful on examination states she will voluntarily admit herself. Patient has no abnormal physical examination findings abdominal pain. Patient appears well urine hCG negative. No fevers. Patient medically cleared for psychiatric evaluation. - Lab Data Result diagrams: 11/27/18 22:45 11/27/18 22:45 Lab Results 11/27/18 11/27/18 11/27/18 Range/Units 16:00 16:00 22:45 WBC 7.7 (3.8-10.6) k/uL RBC 3.94 (3.80-5.40) m/uL Hgb 12.1 (11.4-16.0) gm/dL Hct 34.9 (34.0-46.0) % MCV 88.7 (80.0-100.0) fL MCH 30.6 (25.0-35.0) pg MCHC 34.5 (31.0-37.0) g/dL RDW 13.0 (11.5-15.5) % Plt Count 183 (150-450) k/uL Sodium (137-145) mmol/L Potassium (3.5-5.1) mmol/L Chloride (98-107) mmol/L Carbon Dioxide (22-30) mmol/L Anion Gap mmol/L BUN (7-17) mg/dL Creatinine (0.52-1.04) mg/dL Est GFR (CKD-EPI)AfAm (>60 ml/min/1.73 sqM) Est GFR (CKD-EPI)NonAf (>60 ml/min/1.73 sqM) Glucose (74-99) mg/dL Calcium (8.4-10.2) mg/dL Total Bilirubin (0.2-1.3) mg/dL AST (14-36) U/L ALT (9-52) U/L Alkaline Phosphatase (38-126) U/L Total Protein (6.3-8.2) g/dL Albumin (3.5-5.0) g/dL HCG, Quant mIU/mL Urine Color Light Yellow Urine Appearance Clear (Clear) Urine pH 6.5 (5.0-8.0) Ur Specific [place] 1.006 (1.001-1.035) Urine Protein Negative (Negative) Urine Glucose (UA) Negative (Negative) Urine Ketones Negative (Negative) Urine Blood Negative (Negative) Urine Nitrite Negative (Negative) Urine Bilirubin Negative (Negative) Urine Urobilinogen <2.0 (<2.0) mg/dL Ur Leukocyte Esterase Trace H (Negative) Urine RBC 1 (0-5) /hpf Urine WBC 4 (0-5) /hpf Ur Squamous Epith Cells 2 (0-4) /hpf Urine Bacteria Rare H (None) /hpf Urine HCG, Qual Detected (Not Detectd) Urine Opiates Screen Not Detected (NotDetected) Ur Oxycodone Screen Not Detected (NotDetected) Urine Methadone Screen Not Detected (NotDetected) Ur Propoxyphene Screen Not Detected (NotDetected) Ur Barbiturates Screen Not Detected (NotDetected) U Tricyclic Antidepress Not Detected (NotDetected) Ur Phencyclidine Scrn Not Detected (NotDetected) Ur Amphetamines Screen Not Detected (NotDetected) U Methamphetamines Scrn Not Detected (NotDetected) U Benzodiazepines Scrn Not Detected (NotDetected) Urine Cocaine Screen Not Detected (NotDetected) U Marijuana (THC) Screen Not Detected (NotDetected) 11/27/18 Range/Units 22:45 WBC (3.8-10.6) k/uL RBC (3.80-5.40) m/uL Hgb (11.4-16.0) gm/dL Hct (34.0-46.0) % MCV (80.0-100.0) fL MCH (25.0-35.0) pg MCHC (31.0-37.0) g/dL RDW (11.5-15.5) % Plt Count (150-450) k/uL Sodium 140 (137-145) mmol/L Potassium 4.2 (3.5-5.1) mmol/L Chloride 107 (98-107) mmol/L Carbon Dioxide 25 (22-30) mmol/L Anion Gap 8 mmol/L BUN 9 (7-17) mg/dL Creatinine 0.67 (0.52-1.04) mg/dL Est GFR (CKD-EPI)AfAm >90 (>60 ml/min/1.73 sqM) Est GFR (CKD-EPI)NonAf >90 (>60 ml/min/1.73 sqM) Glucose 95 (74-99) mg/dL Calcium 9.3 (8.4-10.2) mg/dL Total Bilirubin 0.3 (0.2-1.3) mg/dL AST 22 (14-36) U/L ALT 16 (9-52) U/L Alkaline Phosphatase 63 (38-126) U/L Total Protein 6.8 (6.3-8.2) g/dL Albumin 4.2 (3.5-5.0) g/dL HCG, Quant 254.2 mIU/mL Urine Color Urine Appearance (Clear) Urine pH (5.0-8.0) Ur Specific [place] (1.001-1.035) Urine Protein (Negative) Urine Glucose (UA) (Negative) Urine Ketones (Negative) Urine Blood (Negative) Urine Nitrite (Negative) Urine Bilirubin (Negative) Urine Urobilinogen (<2.0) mg/dL Ur Leukocyte Esterase (Negative) Urine RBC (0-5) /hpf Urine WBC (0-5) /hpf Ur Squamous Epith Cells (0-4) /hpf Urine Bacteria (None) /hpf Urine HCG, Qual (Not Detectd) Urine Opiates Screen (NotDetected) Ur Oxycodone Screen (NotDetected) Urine Methadone Screen (NotDetected) Ur Propoxyphene Screen (NotDetected) Ur Barbiturates Screen (NotDetected) U Tricyclic Antidepress (NotDetected) Ur Phencyclidine Scrn (NotDetected) Ur Amphetamines Screen (NotDetected) U Methamphetamines Scrn (NotDetected) U Benzodiazepines Scrn (NotDetected) Urine Cocaine Screen (NotDetected) U Marijuana (THC) Screen (NotDetected) Disposition Clinical Impression: Suicidal ideation, Hx of schizophrenia, Depression Disposition: TRANSFER TO PSYCH HOSP/UNIT Condition: Serious Is patient prescribed a controlled substance at d/c from ED?: No Referrals: Ofelia Lara DO [Primary Care Provider] - 1-2 days Time of Disposition: 10:24 - Out of Hospital Transfer - Req. Specs Out of Hospital Transfer - Requested Specifics: Psychiatric Non-ICU
[2018-11-27 18:43] LABS: Amphetamine Screen,Urine Not Detected (NotDetected); Appearance,Urine Clear (Clear); Bacteria,Urine Rare /hpf; Barbiturate Screen,Urine Not Detected (NotDetected); Benzodiazepines Screen,Urine Not Detected (NotDetected); Bilirubin,Urine Negative (Negative); Blood,Urine Negative (Negative); Cocaine Screen,Urine Not Detected (NotDetected); Color,Urine Light Yellow; Glucose,Urine (UA) Negative (Negative); Ketones,Urine Negative (Negative); Leukocyte Esterase,Urine Trace (Negative); Methadone Screen, Urine Not Detected (NotDetected); Nitrite,Urine Negative (Negative); Opiate Screen,Urine Not Detected (NotDetected); Oxycodone Screen, Urine Not Detected (NotDetected); PH, Urine 6.5 (5.0-8.0); Phencyclidine Screen,Urine Not Detected (NotDetected); Protein,Urine Negative (Negative); RBC,Urine 1 /hpf (0-5); Specific Gravity,Urine 1.006 (1.001-1.035); Squamous Epithelial Cell,Urine 2 /hpf (0-4); Tricyclic Antidepressant,Urine Not Detected (NotDetected); Urn Cannabinoid Scrn Not Detected (NotDetected); Urobilinogen,Urine <2.0 mg/dL (<2.0); WBC,Urine 4 /hpf (0-5)
[2018-11-27] MEDS ORDERED: ACETAMINOPHEN TAB 325 MG TAB PO STA (22:45)
[2018-11-27 22:51] VITALS: BP 97/54; PULSE 79
[2018-11-27 22:53] LABS: HCT 34.9 % (34.0-46.0); HGB 12.1 gm/dL (11.4-16.0); MCH 30.6 pg (25.0-35.0); MCHC 34.5 g/dL (31.0-37.0); MCV 88.7 fL (80.0-100.0); Mean Platelet Volume 7.8; Platelet Count 183 k/uL (150-450); RBC 3.94 m/uL (3.80-5.40); WBC 7.7 k/uL (3.8-10.6)
[2018-11-27 23:01] LABS: ALT 16 U/L (9-52); AST 22 U/L (14-36); African American GFR (CKD) >90 (>60 ml/min/1.73 sqM); Albumin 4.2 g/dL (3.5-5.0); Alkaline Phosphatase 63 U/L (38-126); Anion Gap 8 mmol/L; Blood Urea Nitrogen 9 mg/dL (7-17); Calcium 9.3 mg/dL (8.4-10.2); Carbon Dioxide 25 mmol/L (22-30); Chloride 107 mmol/L (98-107); Glucose 95 mg/dL (74-99); Potassium 4.2 mmol/L (3.5-5.1); Sodium 140 mmol/L (137-145); Total Bilirubin 0.3 mg/dL (0.2-1.3); Total Protein 6.8 g/dL (6.3-8.2)
[2018-11-27 23:18] LABS: HCG,Quantitative Serum 254.2 mIU/mL
== END 2018-11-28 06:16 ==
LOC: EC 15:04
DX: F32.9 Major depressive disorder, single episode, unspecified (principal); R45.851 Suicidal ideations; E07.9 Disorder of thyroid, unspecified; F17.200 Nicotine dependence, unspecified, uncomplicated; Z79.890 Hormone replacement therapy; Z79.3 Long term (current) use of hormonal contraceptives; Z88.5 Allergy status to narcotic agent; Z91.018 Allergy to other foods; Z86.59 Personal history of other mental and behavioral disorders
CPT/HCPCS: 36415; 80053; 80306; 81001; 81025; 82075; 84702; 85027; 99285

== ENCOUNTER 2023-03-31 19:03 | Outpatient (CLI) | payer OTHER ==
[2023-03-31] MEDS ORDERED: LACTATED RINGERS 1,000 ML IV ONE (20:15)
[2023-03-31 20:32] LABS: Appearance,Urine Clear (Clear); Bilirubin,Urine Negative (Negative); Blood,Urine Negative (Negative); Color,Urine Colorless; Glucose,Urine (UA) 2+ (Negative); Ketones,Urine Negative (Negative); Leukocyte Esterase,Urine Negative (Negative); Nitrite,Urine Negative (Negative); PH, Urine 6.5 (5.0-8.0); Protein,Urine Negative (Negative); Specific Gravity,Urine 1.005 (1.001-1.035); Urobilinogen,Urine <2.0 mg/dL (<2.0)
[2023-03-31 21:25] VITALS: BP 111/69; PULSE 100; RESP 16; TEMP 97.8
--- NOTE | 2023-04-04 17:25 | P.MSEPDOC ---
Presenting Problems - Arrival Data Date of Arrival on Unit: 03/31/23 Time of Arrival on Unit: 19:03 Mode of Transport: Ambulatory - Complaint OB-Reason for Admission/Chief Complaint: Other Comment: Pt presents to triage with complaints of lower abdominal cramping rated 8/10 and pressure. States started 1 hour ago. Pt also states that she is having some urinary frequency and urgency Medical History - Information : 5 Para: 1 Term: 1 : 0 Abortions: Spontaneous or Elective: 3 Number of Living Children: 1 - Gestational Age Gestational Age by LAZARO (wks/days): 33 Weeks and 0 Days Review of Systems - Review of Systems Constitutional: No problems Breast: No problems ENT: No problems Cardiovascular: No problems Respiratory: No problems Gastrointestinal: No problems Genitourinary: Urgency, Increased frequency Musculoskeletal: No problems Neurological: No problems Skin: No problems Vital Signs - Temperature Temperature: 97.8 F Temperature Source: Temporal Artery Scan - Pulse Pulse Oximetery Pulse Rate: 100 Pulse Assessment Method: Pulse Oximetry - Respirations Respiratory Rate: 16 Oxygen Delivery Method: Room Air O2 Sat by Pulse Oximetry: 99 - Blood Pressure Right Arm Blood Pressure: 111/69 Blood Pressure Mean: 83 Blood Pressure Source: Automatic Cuff Medical Screen Scoring - Cervical Exam Membranes: Intact - Uterine Contractions Frequency From (mins): 2 Frequency To (mins): 4 Duration From (seconds): 40 Duration To (seconds): 90 Intensity: Mild Resting: Soft to palpation - Assessment - Baby A Baseline FHR: 145 Heart Rate - NICHD Category: Category I (Normal) NST: Reactive Physician Notification - Physician Notified Physician Notified Date: 03/31/23 Physician Notified Time: 19:46 Physician: Mahogany Ahumada New Order Received: Yes - Notification Comment Comment: Dr. Ahumada called, reported on pt status, complaints of cramping 8/10 and pressure X1 hour, G/P, GA, Pt stating that she has not drank much water, urine collected, FFN collected, FHT, Contraction pattern, VS. Orders to check cervix and give 1L bolus LR, recheck cervix in 1 hr. Discharge home if no change. Maternal Triage Index - Maternal Triage Index Presenting for scheduled procedure w/no complaint: No - Stat/Priority 1 Stat Priority 1: No - Urgent/Priority 2 Urgent Priority 2: No - Prompt/Priority 3 Prompt Priority 3: No - Non-Urgent/Priority 4 Non-Urgent Priority 4: Yes Criteria Met for Priority 4: Pt presents to triage with complaints of lower abdominal cramping rated 8/10 and pressure. States started 1 hour ago. Pt also states that she is having some urinary frequency and urgency Disposition - Disposition OB Disposition: Discharge to home Discharge Date: 03/31/23 Discharge Time: 21:10 I agree with the RN Medical Screening Exam: Yes Physician's MSE Comment: I have neither seen nor examined the patient. Case reviewed; plan agreed upon as documented in EMR&OBIX.: Yes Diagnosis: RELATED CONDITIONS, UNSPECIFIED, THIRD TRIMESTER
== END 2023-03-31 21:10 | disposition home or self-care (01) ==
LOC: FBPOP 19:03
PROVIDERS: ATTEND Obstetrics & Gynecology
DX: O26.893 Other specified pregnancy related conditions, third trimester (principal); R10.30 Lower abdominal pain, unspecified; R25.2 Cramp and spasm; R39.15 Urgency of urination; O99.333 Smoking (tobacco) complicating pregnancy, third trimester; F17.200 Nicotine dependence, unspecified, uncomplicated; Z3A.33 33 weeks gestation of pregnancy; Z91.09 Other allergy status, other than to drugs and biological substances; Z88.5 Allergy status to narcotic agent
CPT/HCPCS: 59025; 96360; 81003; 87086; G0463; 99214

== ENCOUNTER 2023-04-24 19:31 | Observation (INO) | payer OTHER ==
[2023-04-24] MEDS ORDERED: LACTATED RINGERS 500 ML IV SCH (22:15)
[2023-04-24] MEDS ORDERED: LACTATED RINGERS 1,000 ML IV SCH (22:15)
[2023-04-24] MEDS ORDERED: NALBUPHINE 10 MG/ML (10 ML MDV) IV PRN (23:04)
[2023-04-25 08:38] VITALS: BP 98/55; PULSE 73; RESP 16; TEMP 98.2
== END 2023-04-25 09:45 | disposition home or self-care (01) ==
LOC: FBPOP 19:31 → 4FBP 21:58
PROVIDERS: ADMIT Obstetrics & Gynecology Obstetrics; ATTEND Obstetrics & Gynecology Obstetrics
DX: O62.4 Hypertonic, incoordinate, and prolonged uterine contractions (principal); Z3A.00 Weeks of gestation of pregnancy not specified
CPT/HCPCS: 59025; 96374; G0463; G0378 ×2; J2300; 99213

== ENCOUNTER 2023-04-27 20:03 | Outpatient (CLI) | payer OTHER ==
[2023-04-27] MEDS: LACTATED RINGERS 1,000 ML IV ONE (21:45)
[2023-04-28 00:01] VITALS: BP 111/70; PULSE 109; RESP 16; TEMP 97.8
--- NOTE | 2023-05-09 13:59 | P.MSEPDOC ---
Presenting Problems - Arrival Data Date of Arrival on Unit: 04/27/23 Time of Arrival on Unit: 20:03 Mode of Transport: Wheelchair - Complaint OB-Reason for Admission/Chief Complaint: Possible Onset of Labor Comment: pt complains of contractions that are 5 mins apart at home Medical History - Information : 5 Para: 1 Term: 0 : 1 Abortions: Spontaneous or Elective: 3 Number of Living Children: 1 - Gestational Age Gestational Age by LAZARO (wks/days): 36 Weeks and 6 Days Review of Systems - Review of Systems Constitutional: No problems Breast: No problems ENT: No problems Cardiovascular: No problems Respiratory: No problems Gastrointestinal: No problems Genitourinary: No problems Musculoskeletal: No problems Neurological: No problems Skin: No problems Vital Signs - Temperature Temperature: 97.8 F Temperature Source: Oral - Pulse Pulse Oximetery Pulse Rate: 109 Pulse Assessment Method: Pulse Oximetry - Respirations Respiratory Rate: 16 Oxygen Delivery Method: Room Air O2 Sat by Pulse Oximetry: 99 - Blood Pressure Right Arm Blood Pressure: 111/70 Blood Pressure Mean: 83 Blood Pressure Source: Automatic Cuff Medical Screen Scoring - Cervical Exam Dilation (cm): 3 Effacement (%): 70 Station: -2 Membranes: Intact - Uterine Contractions Frequency From (mins): 5 Frequency To (mins): 5 Duration From (seconds): 60 Duration To (seconds): 60 Intensity: Mild Resting: Soft to palpation - Assessment - Baby A Baseline FHR: 140 Heart Rate - NICHD Category: Category I (Normal) NST: Reactive Physician Notification - Physician Notified Physician Notified Date: 04/27/23 Physician Notified Time: 23:02 Physician: Jenise Masters New Order Received: Yes (d/c home) Maternal Triage Index - Maternal Triage Index Presenting for scheduled procedure w/no complaint: No - Stat/Priority 1 Stat Priority 1: No - Urgent/Priority 2 Urgent Priority 2: No - Prompt/Priority 3 Prompt Priority 3: Yes Criteria Met for Priority 3: pt 36 6/7 and complaining of contractions Disposition - Disposition OB Disposition: Discharge to home Discharge Date: 04/27/23 Discharge Time: 23:15 I agree with the RN Medical Screening Exam: Yes Case reviewed; plan agreed upon as documented in EMR&OBIX.: Yes Diagnosis: FALSE LABOR BEFORE 37 COMPLETED WEEKS OF GEST, THIRD TRI
== END 2023-04-27 23:15 ==
LOC: FBPOP 20:03
PROVIDERS: ATTEND Obstetrics & Gynecology Obstetrics
DX: O47.03 False labor before 37 completed weeks of gestation, third trimester (principal); O99.333 Smoking (tobacco) complicating pregnancy, third trimester; F17.200 Nicotine dependence, unspecified, uncomplicated; Z3A.36 36 weeks gestation of pregnancy; Z88.5 Allergy status to narcotic agent; Z91.018 Allergy to other foods; Z79.82 Long term (current) use of aspirin
CPT/HCPCS: 59025; 96360; G0463; 99213; 99214

== ENCOUNTER 2023-05-01 04:59 | Outpatient (CLI) | payer OTHER ==
[2023-05-01 05:56] VITALS: BP 111/73; PULSE 98; RESP 16; TEMP 97.4
--- NOTE | 2023-05-06 11:16 | P.MSEPDOC ---
Presenting Problems - Arrival Data Date of Arrival on Unit: 05/01/23 Time of Arrival on Unit: 04:59 Mode of Transport: Ambulatory - Complaint OB-Reason for Admission/Chief Complaint: Rule Out SROM Comment: SROM around 329, clear fluid Medical History - Information : 5 Para: 1 Term: 1 : 0 Abortions: Spontaneous or Elective: 3 Number of Living Children: 1 - Gestational Age Gestational Age by LAZARO (wks/days): 37 Weeks and 3 Days Review of Systems - Review of Systems Constitutional: No problems Breast: No problems ENT: No problems Cardiovascular: No problems Respiratory: No problems Gastrointestinal: No problems Genitourinary: No problems Musculoskeletal: No problems Neurological: No problems Skin: No problems Vital Signs - Temperature Temperature: 97.4 F Temperature Source: Temporal Artery Scan - Pulse Pulse Oximetery Pulse Rate: 98 Pulse Assessment Method: Pulse Oximetry - Respirations Respiratory Rate: 16 Oxygen Delivery Method: Room Air O2 Sat by Pulse Oximetry: 99 - Blood Pressure Right Arm Blood Pressure: 111/73 Blood Pressure Mean: 85 Blood Pressure Source: Automatic Cuff Medical Screen Scoring - Cervical Exam Dilation (cm): 3 Effacement (%): 70 Station: -2 Membranes: Intact - Uterine Contractions Intensity: Mild Resting: Soft to palpation - Assessment - Baby A Baseline FHR: 130 Heart Rate - NICHD Category: Category I (Normal) NST: Reactive Physician Notification - Physician Notified Physician Notified Date: 05/01/23 Physician Notified Time: 05:43 Physician: Emre Sanders Order Received: Yes - Notification Comment Comment: RN spoke with Dr. Sanders regarding triage pt c/o SROM around 329 with clear fluid. Reported vital signs WNL, amnisure negative, cervix 3/70/-2 which was the same check as last and irregular contx pt is not feeling. Order received to discharge pt home. Maternal Triage Index - Maternal Triage Index Presenting for scheduled procedure w/no complaint: No - Stat/Priority 1 Stat Priority 1: No - Urgent/Priority 2 Urgent Priority 2: No - Prompt/Priority 3 Prompt Priority 3: No - Non-Urgent/Priority 4 Non-Urgent Priority 4: Yes Criteria Met for Priority 4: c/o SROM Disposition - Disposition OB Disposition: Discharge to home, Written follow up instructions reviewed Discharge Date: 05/01/23 Discharge Time: 05:48 I agree with the RN Medical Screening Exam: Yes Physician's MSE Comment: I have neither seen nor examined the patient. Case reviewed; plan agreed upon as documented in EMR&OBIX.: Yes Diagnosis: RELATED CONDITIONS, UNSPECIFIED, THIRD TRIMESTER
== END 2023-05-01 05:48 | disposition home or self-care (01) ==
LOC: FBPOP 04:59
PROVIDERS: ATTEND Obstetrics & Gynecology
DX: O47.1 False labor at or after 37 completed weeks of gestation (principal); O99.333 Smoking (tobacco) complicating pregnancy, third trimester; F17.200 Nicotine dependence, unspecified, uncomplicated; Z3A.37 37 weeks gestation of pregnancy; Z88.5 Allergy status to narcotic agent; Z91.018 Allergy to other foods; Z79.82 Long term (current) use of aspirin
CPT/HCPCS: 59025; 84112; G0463; 99213

== ENCOUNTER 2023-05-01 18:43 | Outpatient (CLI) | payer OTHER ==
[2023-05-01 20:15] VITALS: BP 107/67; PULSE 92; RESP 16; TEMP 97.5
--- NOTE | 2023-05-11 09:18 | P.MSEPDOC ---
Presenting Problems - Arrival Data Date of Arrival on Unit: 05/01/23 Time of Arrival on Unit: 18:43 Mode of Transport: Ambulatory - Complaint OB-Reason for Admission/Chief Complaint: Rule Out SROM Comment: Pt states possible rupture at 0430 this morning; was in triage this morning and was sent home. States has continued to be damp and has burning in her vagina. Medical History - Information : 5 Para: 1 Term: 1 Number of Living Children: 1 - Gestational Age Gestational Age by LAZARO (wks/days): 37 Weeks and 3 Days Review of Systems - Review of Systems Constitutional: No problems Breast: No problems ENT: No problems Cardiovascular: No problems Respiratory: No problems Gastrointestinal: No problems Genitourinary: No problems Musculoskeletal: No problems Neurological: No problems Skin: No problems Vital Signs - Temperature Temperature: 97.5 F Temperature Source: Temporal Artery Scan - Pulse Right Sitting Pulse Rate: 92 Pulse Assessment Method: Automatic Cuff - Respirations Respiratory Rate: 16 Oxygen Delivery Method: Room Air O2 Sat by Pulse Oximetry: 99 - Blood Pressure Right Arm Sitting Blood Pressure: 107/67 Blood Pressure Mean: 80 Blood Pressure Source: Automatic Cuff Medical Screen Scoring - Cervical Exam Dilation (cm): 3 Effacement (%): 70 Station: -3 Membranes: Intact - Assessment - Baby A Baseline FHR: 140 Heart Rate - NICHD Category: Category I (Normal) NST: Reactive Physician Notification - Physician Notified Physician Notified Date: 05/01/23 Physician Notified Time: 19:20 Physician: Namrata Sam Order Received: Yes - Notification Comment Comment: Spk c\Dr. Sam, advsd , 37 06/06, c/o possible SROM, was in triage this morning and sent home, continues to feel damp. Reactive NST, Cat 1 FHT. No contractions. SVE unchanged from this morning, Amnisure negative, large amount of vaginal discharge, clear c\white clumps, pt states burning in vagina. Order rec'd to discharge home, can call in morning to try and see Drouillard or keep appt . Maternal Triage Index - Maternal Triage Index Presenting for scheduled procedure w/no complaint: No - Stat/Priority 1 Stat Priority 1: No - Urgent/Priority 2 Urgent Priority 2: No - Prompt/Priority 3 Prompt Priority 3: No - Non-Urgent/Priority 4 Non-Urgent Priority 4: Yes Criteria Met for Priority 4: >37 wks r/o SROM Disposition - Disposition OB Disposition: Discharge to home, Written follow up instructions reviewed Discharge Date: 05/01/23 Discharge Time: 19:45 I agree with the RN Medical Screening Exam: Yes Case reviewed; plan agreed upon as documented in EMR&OBIX.: Yes Diagnosis: rule out labor
== END 2023-05-01 19:45 | disposition home or self-care (01) ==
LOC: FBPOP 18:43
PROVIDERS: ATTEND Obstetrics & Gynecology
DX: O47.1 False labor at or after 37 completed weeks of gestation (principal); O26.893 Other specified pregnancy related conditions, third trimester; N89.8 Other specified noninflammatory disorders of vagina; O99.333 Smoking (tobacco) complicating pregnancy, third trimester; F17.200 Nicotine dependence, unspecified, uncomplicated; Z3A.37 37 weeks gestation of pregnancy; Z88.5 Allergy status to narcotic agent; Z91.018 Allergy to other foods; Z79.82 Long term (current) use of aspirin
CPT/HCPCS: 59025; 84112; G0463; 99213

== ENCOUNTER 2023-05-04 08:59 | Inpatient (IN) | payer OTHER ==
[2023-05-04] MEDS ORDERED: METHYLERGONOVINE 0.2 MG/ML 1 ML AMP IM PRN (09:38)
[2023-05-04] MEDS ORDERED: TERBUTALINE 1 MG/ML VIAL SQ PRN (09:38)
[2023-05-04] MEDS ORDERED: LIDOCAINE 0.5% (PF) 5 MG/ML (50 ML SDV) SQ PRN (09:38)
[2023-05-04] MEDS ORDERED: OXYTOCIN 10 UNIT/ML 1 ML VIAL IM PRN (09:38)
[2023-05-04] MEDS ORDERED: TRANEXAMIC 1,000 MG/100ML-NACL 1,000 MG in EMPTY BAG 1 BAG IV PRN (09:38)
[2023-05-04] MEDS ORDERED: CARBOPROST TROMETHAMINE 250 MCG/ML 1 ML AMP IM PRN (09:38)
[2023-05-04] MEDS ORDERED: miSOPROStoL 200 MCG TAB PO PRN (09:38)
[2023-05-04] MEDS ORDERED: LACTATED RINGERS 1,000 ML IV SCH (09:45)
[2023-05-04] MEDS ORDERED: OXYTOCIN 30 UNITS/500 ML NS 30 UNIT in SALINE 1 500ML.BAG IV SCH (09:45)
[2023-05-04 09:55] LABS: Basophils # (A) 0.1 k/uL (0-0.2); Basophils % (A) 1 %; Eosinophils # (A) 0.1 k/uL (0-0.7); Eosinophils % (A) 1 %; HCT 32.4 % (34.0-46.0); HGB 10.4 gm/dL (11.4-16.0); Hypochromasia Moderate; Lymphocytes # (A) 2.1 k/uL (1.0-4.8); Lymphocytes % (A) 17 %; MCH 24.5 pg (25.0-35.0); MCV 76.5 fL (80.0-100.0); Mean Platelet Volume 9.2; Monocytes # (A) 0.5 k/uL (0-1.0); Monocytes % (A) 4 %; Neutrophils # (A) 9.2 k/uL (1.3-7.7); Neutrophils % (A) 75 %; Platelet Count 180 k/uL (150-450); RBC 4.23 m/uL (3.80-5.40); RDW 14.6 % (11.5-15.5); WBC 12.3 k/uL (3.8-10.6)
--- NOTE | 2023-05-04 12:43 | P.HPOB ---
History of Present Illness H&P Date: 05/04/23 Chief Complaint: Spontaneous rupture of membranes Ms. Esparza is a 28 year old at 37 weeks and 6 days with EDC of 05/19/2023 by LMPw consistent with 6 week US who presents after spontaenous rupture of membranes at 800 this morning revealing clear amniotic fluid. The pa tient is also alina regularly every 2 minutes. The has been complicated by a maternal history of anxiety and depression for which she is not on medications. The fetus measured in the 35%ile for gestational age at 32 weeks. Obstetric history: 1 full term vaginal delivery at 38 weeks without complications, 3 SABs work-up: blood type A positive, antibody negative, rubella immune, VDRL non-reactive, HBsAg negative, HIV negative, HCV Ab negative, gonorrhea negative, chlamydia negative, 1 hour GTT within normal limits, GBS negative. Patient s/p TDap 04/04/2023. Past Medical History Past Medical History: Asthma, Thyroid Disorder Additional Past Medical History / Comment(s): UTI, migraine, 3 spontaneous abo rtions History of Any Multi-Drug Resistant Organisms: None Reported Past Surgical History: Cholecystectomy, Tonsillectomy Past Anesthesia/Blood Transfusion Reactions: No Reported Reaction Past Psychological History: Anxiety, Depression, Schizophrenia Additional Psychological History / Comment(s): Pt resides with her SO and two children She is independent. She states she has above psychological hx but no longer takes medications because meds just made "it worse." Smoking Status: Never smoker Past Alcohol Use History: None Reported Additional Past Alcohol Use History / Comment(s): Quit when she found out she was Past Drug Use History: None Reported - Past Family History Father Family Medical History: No Reported History Additional Family Medical History / Comment(s): Father is healthy Mother Family Medical History: No Reported History Additional Family Medical History / Comment(s): Mother is healthy Medications and Allergies Home Medications Medication Instructions Recorded Confirmed Type Pnv No.95/Ferrous Fum/Folic AC 1 each PO DAILY 10/21/19 05/04/23 History [ Multivitamin Tablet] Aspirin [Adult Low Dose Aspirin EC] 81 mg PO DAILY 03/31/23 05/04/23 History B6/Mfolate/B12/Mineral/[id number] 1 each PO DAILY 04/24/23 05/04/23 History [Femquil Capsule] Allergies Allergy/AdvReac Type Severity Reaction Status Date / Time cinnamon Allergy Unknown Verified 05/04/23 09:35 morphine AdvReac Nausea & Verified 05/04/23 09:35 Vomiting Exam Vital Signs Temp Pulse Resp BP 05/04/23 09:00 97.6 F 94 16 119/71 Intake and Output 05/03/23 05/04/23 05/04/23 22:59 06:59 14:59 Other: Weight 70.307 kg Focused physical exam is performed. This is a healthy-appearing in no apparent distress. Breathing is non-labored. Abdomen is gravid and non-tender. Cervical exam is 3 cm, 80 effacement, -2 station. Membranes are ruptured and Extremeties non-tender and non-edematous. heart tones are Category I and tocometer is graphing contractions every 2-4 minutes. Results Result Diagrams: 05/04/23 09:40 Abnormal Lab Results - Last 24 Hours (Table) 05/04/23 Range/Units 09:40 WBC 12.3 H (3.8-10.6) k/uL Hgb 10.4 L (11.4-16.0) gm/dL Hct 32.4 L (34.0-46.0) % MCV 76.5 L (80.0-100.0) fL MCH 24.5 L (25.0-35.0) pg Neutrophils # 9.2 H (1.3-7.7) k/uL Assessment and Plan Assessment: 28 year old at 37 weeks and 6 days in with SROM and in labor Plan: Admit, clear liquid diet, epidural prn, continuous EFM and tocometer, close monitoring of patient. Anticipate vaginal delivery. Time with Patient: Less than 30
[2023-05-04] MEDS ORDERED: LANOLIN CREAM 5 GM TUBE TOPICAL PRN (14:21)
[2023-05-04] MEDS ORDERED: BENZOCAINE/MENTHOL SPRAY 1 GM/SPRAY AEROSOL TOPICAL PRN (14:21)
[2023-05-04] MEDS ORDERED: ZOLPIDEM 5 MG TAB PO PRN (14:21)
[2023-05-04] MEDS ORDERED: diphenhydrAMINE 50 MG/ML 1 ML VIAL IVP PRN ×2 (14:21)
[2023-05-04] MEDS ORDERED: SIMETHICONE 80 MG CHEWABLE PO PRN (14:21)
[2023-05-04] MEDS ORDERED: HYDROCORTISONE 2.5% RECTAL CREAM 30 GM TUBE RECTAL PRN (14:21)
[2023-05-04] MEDS ORDERED: diphenhydrAMINE 50 MG CAP PO PRN (14:21)
[2023-05-04] MEDS ORDERED: diphenhydrAMINE 25 MG CAP PO PRN (14:21)
--- NOTE | 2023-05-04 14:21 | P.PROBDLV ---
Vaginal Delivery Note - . Vaginal Delivery Note: DATE OF SERVICE: 05/04/2023 PROCEDURE: Normal Vaginal Delivery ATTENDING: Dr. Mahogany Ahumada MD ESTIMATED BLOOD LOSS: 400 mL FINDINGS: VMI, Apgars 8/9. Weight 7 pounds and 1 ounce (3215 grams) PROCEDURE: Ms. Esparza is a 28 year old at 37 weeks and 1 day presenting to labor and delivery for in labor after spontaneous rupture of membranes at 800 revealing clear amniotic fluid. The has been essentially uncomplicated. For further details, please review the admitting H&P. Pitocin augmentation was started. The patient was completely dilated at 1344. The patient pushed effectively. A viable male infant was delivered at 1405. The infant was placed on the maternal abdomen and bulb suctioned. The infant was noted to be spontaneously crying. Cord was clamped and cut after a 30-second delay. The was handed off to the pediatric team. Placenta was delivered whole with gentle cord traction at 1409. Oxytocin was started to facilitate uterine tone. Uterine fundus was found to be firm and below the umbilicus upon fundal massage. Thorough examination of the cervix, vagina, periurethral area, and perineum revealed no lacerations. The patient is stable and allowed to begin the bonding process.
[2023-05-04] MEDS: IBUPROFEN 600 MG TAB PO PRN (15:02)
[2023-05-04] MEDS: ACETAMINOPHEN TAB 325 MG TAB PO PRN (19:50)
[2023-05-04] MEDS: SENNOSIDES-DOCUSATE SODIUM 1 EACH TAB PO SCH (19:51)
[2023-05-05] MEDS: IBUPROFEN 600 MG TAB PO PRN ×3 (00:57→13:16)
[2023-05-05] MEDS: ACETAMINOPHEN TAB 325 MG TAB PO PRN ×3 (04:21→15:54)
[2023-05-05] MEDS: SENNOSIDES-DOCUSATE SODIUM 1 EACH TAB PO SCH ×2 (07:33→07:34)
[2023-05-05 08:20] VITALS: RESP 18
[2023-05-05 10:21] LABS: Basophils # (A) 0.1 k/uL (0-0.2); Basophils % (A) 0 %; Eosinophils # (A) 0.1 k/uL (0-0.7); Eosinophils % (A) 1 %; HCT 27.2 % (34.0-46.0); HGB 8.5 gm/dL (11.4-16.0); Hypochromasia Moderate; Lymphocytes # (A) 2.3 k/uL (1.0-4.8); Lymphocytes % (A) 15 %; MCHC 31.3 g/dL (31.0-37.0); MCV 76.7 fL (80.0-100.0); Mean Platelet Volume 9.8; Monocytes # (A) 0.6 k/uL (0-1.0); Monocytes % (A) 4 %; Neutrophils # (A) 11.4 k/uL (1.3-7.7); Neutrophils % (A) 78 %; Platelet Count 184 k/uL (150-450); RBC 3.54 m/uL (3.80-5.40); RDW 14.8 % (11.5-15.5); WBC 14.6 k/uL (3.8-10.6)
--- NOTE | 2023-05-05 11:10 | P.DS ---
Providers Date of admission: 05/04/23 09:19 Expected date of discharge: 05/05/23 Attending physician: Mahogany Ahumada MD Primary care physician: Stated None - Discharge Diagnosis(es) (1) Normal spontaneous vaginal delivery Current Visit: Yes Status: Acute Hospital Course: The patient is a 28-year-old 5 para 1031 admitted at 37-6/7 weeks by teddy wesley. She is admitted with documented spontaneous rupture of membranes for clear fluid. She presents in labor as well. Her has been essentially uncomplicated and group B strep status is negative. On labor and delivery, she had Pitocin augmentation started and progressed through the active phase of labor to complete. She pushed to a normal spontaneous vaginal delivery of a viable 7 lbs. 1 oz. baby boy with Apgars of 8 at 1 minute and 9 at 5 minutes. Her course was unremarkable with vital signs remained stable and her temperature was afebrile throughout. She was deemed stable for discharge on day #1 was discharged home to follow-up in the office in 6 weeks' time routinely. Discharge instructions included calling for any significantly increased bleeding or foul-smelling lochia, significantly increased fever abdominal pain, perineal complaints, breast complaints, or anything else that concerned her. She is additionally instructed to have nothing in the vagina for at least 6 weeks time to include intercourse. She understood her instructions and agrees to follow up as noted above. Discharge medications included [id number] analgesic pain medications as well as recommendation for iron sulfate one to 2 by mouth daily secondary to post anemia to be taken for approximately 1 month. Maternal blood type is A+ and rubella status is immune. Procedures: #1. Pitocin augmentation #2. Normal spontaneous vaginal delivery Patient Condition at Discharge: Stable Plan - Discharge Summary New Discharge Prescriptions: No Action Pnv No.95/Ferrous Fum/Folic AC [ Multivitamin Tablet] 1 each PO DAILY Aspirin [Adult Low Dose Aspirin EC] 81 mg PO DAILY B6/Mfolate/B12/Mineral/[id number] [Femquil Capsule] 1 each PO DAILY Discharge Medication List Pnv No.95/Ferrous Fum/Folic AC [ Multivitamin Tablet] 1 each PO DAILY 10/21/19 [History] Aspirin [Adult Low Dose Aspirin EC] 81 mg PO DAILY 03/31/23 [History] B6/Mfolate/B12/Mineral/[id number] [Femquil Capsule] 1 each PO DAILY 04/24/23 [History] Follow up Appointment(s)/Referral(s): Mahogany Ahumada MD [STAFF PHYSICIAN] - 6 Weeks Discharge Disposition: HOME SELF-CARE
[2023-05-05 16:24] VITALS: BP 115/69; PULSE 102; TEMP 98.3
== END 2023-05-05 18:15 | disposition home or self-care (01) | DRG 955 ==
LOC: FBPOP 08:59 → 4FBP 09:19
PROVIDERS: ADMIT Obstetrics & Gynecology; ATTEND Obstetrics & Gynecology
DX: O99.344 Other mental disorders complicating childbirth (principal); F20.9 Schizophrenia, unspecified; F32.A Depression, unspecified; F41.9 Anxiety disorder, unspecified; G43.909 Migraine, unspecified, not intractable, without status migrainosus; O99.52 Diseases of the respiratory system complicating childbirth; J45.909 Unspecified asthma, uncomplicated; Z37.0 Single live birth; Z3A.37 37 weeks gestation of pregnancy; Z79.82 Long term (current) use of aspirin; Z87.440 Personal history of urinary (tract) infections; Z88.5 Allergy status to narcotic agent; Z28.310 Unvaccinated for COVID-19; Z28.21 Immunization not carried out because of patient refusal
CPT/HCPCS: 85025; 86850; 86900; 86901

== ENCOUNTER → 2024-08-04 | Outpatient (CLI) | payer BC, OTHER ==
--- NOTE | 2024-08-04 15:41 | XR ---
EXAMINATION TYPE: XR cervical spine comp DATE OF EXAM: 08/04/2024 3:34 PM INDICATION: Patient age:Female; 29 years old; Reason for study: S13.4XXA; PHH, pain COMPARISON: None TECHNIQUE: The cervical spine was imaged in 4 projections. Frontal, lateral, odontoid and bilateral o blique. FINDINGS: The osseous structures show normal alignment without evidence of an acute fracture. The intervertebra l disk spaces are preserved. Pedicles are intact. Soft tissues are within normal limits. The odonto id appears intact. IMPRESSION: 1. No fracture or dislocation. 2. No significant degenerative disc disease. [facility], , 08/04/2024 3:38 PM
--- NOTE | 2024-08-04 15:42 | XR ---
EXAMINATION TYPE: XR pelvis AP view DATE OF EXAM: 08/04/2024 3:34 PM INDICATION: Patient age:Female; 29 years old; Reason for study: S30.0XXA; PHH. pain COMPARISON: KUB radiograph 07/07/2015, CT chest abdomen and pelvis 09/01/2016 TECHNIQUE: The pelvis was examined in a single projection. FINDINGS: There is no evidence of fracture or dislocation. There is no soft tissue abnormality. Right -sided pelvic phleboliths. Moderate amount of stool is present within the right colon. IMPRESSION: No acute osseous pathology. [facility], , 08/04/2024 3:39 PM
--- NOTE | 2024-08-04 15:43 | XR ---
EXAMINATION TYPE: XR lumbar spine 2 or 3V DATE OF EXAM: 08/04/2024 CLINICAL HISTORY: pain TECHNIQUE: Three views of the lumbar spine are submitted. COMPARISON: CT chest abdomen pelvis 09/01/2016 FINDINGS: There are 5 lumbar type vertebral bodies identified. The lumbar spine shows satisfactory alignment w ithout evidence of acute fracture or dislocation. Vertebral body heights are within normal limits. Disc spaces are within normal limits. The overlying soft tissue appears unremarkable. IMPRESSION: No acute fracture or dislocation is seen in the lumbar spine. [facility], , 08/04/2024 3:40 PM
== END | disposition home or self-care (01) ==
LOC: RADXRMAIN 14:59
PROVIDERS: ATTEND Emergency Medicine
DX: S13.4XXA Sprain of ligaments of cervical spine, initial encounter (principal); S30.0XXA Contusion of lower back and pelvis, initial encounter; X58.XXXA Exposure to other specified factors, initial encounter
CPT/HCPCS: 72050; 72100; 72170

== ENCOUNTER 2024-10-27 11:12 | Emergency (ER) | payer OTHER, BC ==
[2024-10-27 11:43] VITALS: TEMP 98.6
--- NOTE | 2024-10-27 12:06 | ED ---
General Adult HPI - General Chief complaint: Extremity Injury, Lower Stated complaint: [facility]-L foot toe injury Time Seen by Provider: 10/27/24 11:26 Source: patient, RN notes reviewed Mode of arrival: ambulatory Limitations: no limitations - History of Present Illness Initial comments: This is a 29-year-old female presenting for left second toe fracture. Patient states a cabinet fell on her toe at work on Sunday, already confirming the fracture on x-ray ordered by her PCP. Patient was advised by workplace to go to ER even though she has already performed [facility] drug screen and has an orthopedic appointment today. Patient states she is already in a flexible shoe/splint, stating everything is being managed/handled well already. Patient denies any o ther complaints at this time. Onset/Timin -: days(s) Location: left, lower extremity Radiation: non-radiation Worsens with: movement Associated Symptoms: denies other symptoms - Related Data Home Medications Medication Instructions Recorded Confirmed Pnv No.95/Ferrous Fum/Folic AC 1 each PO DAILY 10/21/19 05/04/23 [ Multivitamin Tablet] Aspirin [Adult Low Dose Aspirin EC] 81 mg PO DAILY 03/31/23 05/04/23 B6/Mfolate/B12/Mineral/Gain530 1 each PO DAILY 04/24/23 05/04/23 [Femquil Capsule] Allergies Allergy/AdvReac Type Severity Reaction Status Date / Time cinnamon Allergy Unknown Verified 10/27/24 11:42 morphine AdvReac Nausea & Verified 10/27/24 11:42 Vomiting Review of Systems ROS Statement: Those systems with pertinent positive or pertinent negative responses have been documented in the HPI. ROS Other: All systems not noted in ROS Statement are negative. Past Medical History Past Medical History: Asthma, Thyroid Disorder Additional Past Medical History / Comment(s): UTI, migraine, 3 spontaneous a bortions History of Any Multi-Drug Resistant Organisms: None Reported Past Surgical History: Cholecystectomy, Tonsillectomy Past Anesthesia/Blood Transfusion Reactions: No Reported Reaction Past Psychological History: Anxiety, Depression, Schizophrenia Smoking Status: Never smoker Past Alcohol Use History: None Reported Past Drug Use History: None Reported - Past Family History Father Family Medical History: No Reported History Additional Family Medical History / Comment(s): Father is healthy Mother Family Medical History: No Reported History Additional Family Medical History / Comment(s): Mother is healthy General Exam Limitations: no limitations General appearance: alert, in no apparent distress Head exam: Present: atraumatic, normocephalic, normal inspection Eye exam: Present: normal appearance, PERRL, EOMI. Absent: scleral icterus, conjunctival injection, periorbital swelling ENT exam: Present: normal exam, mucous membranes moist Neck exam: Present: normal inspection. Absent: tenderness, meningismus, lymphadenopathy Respiratory exam: Present: normal lung sounds bilaterally. Absent: respiratory distress, wheezes, rales, rhonchi, stridor Cardiovascular Exam: Present: regular rate, normal rhythm, normal heart sounds. Absent: systolic murmur, diastolic murmur, rubs, gallop, clicks GI/Abdominal exam: Present: soft, normal bowel sounds. Absent: distended, tenderness, guarding, rebound, rigid Extremities exam: Present: tenderness (Positive left second toe TTP. Overlying erythema/ecchymosis noted. Left foot already in flat sole splint/shoe), normal capillary refill. Absent: pedal edema, joint swelling, calf tenderness Back exam: Present: normal inspection Neurological exam: Present: alert, oriented X3, CN II-XII intact Psychiatric exam: Present: normal affect, normal mood Skin exam: Present: warm, dry, intact, normal color. Absent: rash Course Vital Signs 10/27/24 10/27/24 11:39 13:04 Temperature 98.6 F Pulse Rate 112 H 94 Respiratory 20 16 Rate Blood Pressure 133/83 124/86 O2 Sat by Pulse 96 99 Oximetry Medical Decision Making - Medical Decision Making Was pt. sent in by a medical professional or institution (Dr. PA, MACHINE SEWER, urgent care, hospital, or senior care...) When possible be specific @ -No Did you speak to anyone other than the patient for history (EMS, parent, family, police, friend...)? What history was obtained from this source @ -No Did you review nursing and triage notes (agree or disagree)? Why? @ -I reviewed and agree with nursing and triage notes Were old charts reviewed (outside hosp., previous admission, EMS record, old EKG, old radiological studies, urgent care reports/EKG's, senior care records)? Report findings @ -No old charts were reviewed Differential Diagnosis (chest pain, altered mental status, abdominal pain women, abdominal pain men, vaginal bleeding, weakness, fever, dyspnea, syncope, headache, dizziness, GI bleed, back pain, seizure, CVA, palpatations, mental health, musculoskeletal)? @ -Differential Musculoskeletal Muscular strain, contusion, ligament sprain, fracture, arthritis, septic arthritis, bursitis, cellulitis, muscle spasm, nerve compression, DVT, arterial occlusion, herpes zoster, electrolyte abnormality, tumor.... This is not meant to be in all inclusive list EKG interpreted by me (3pts min.). @ -Not done X-rays interpreted by me (1pt min.). @ -None done CT interpreted by me (1pt min.). @ -None done U/S interpreted by me (1pt. min.). @ -None done What testing was considered but not performed or refused? (CT, X-rays, U/S, labs)? Why? @ -None What meds were considered but not given or refused? Why? @ -None Did you discuss the management of the patient with other professionals (professionals i.e. , PA, MACHINE SEWER, lab, RT, psych nurse, social insurance analyst, immigration lawyer, teacher, combatant diver officer, block and case maker)? Give summary @ -No Was smoking cessation discussed for >3mins.? @ -No Was critical care preformed (if so, how long)? @ -No Were there social determinants of health that impacted care today? How? (Homelessness, low income, unemployed, alcoholism, drug addiction, transportation, low edu. Level, literacy, decrease access to med. care, [facility], rehab)? @ -No Was there de-escalation of care discussed even if they declined (Discuss DNR or withdrawal of care, Hospice)? DNR status @ -No What co-morbidities impacted this encounter? (DM, HTN, Smoking, COPD, CAD, Cancer, CVA, ARF, Chemo, Hep., AIDS, mental health diagnosis, sleep apnea, morbid obesity)? @ -None Was patient admitted / discharged? Hospital course, mention meds given and route, prescriptions, significant lab abnormalities, going to OR and other pertinent info. @ -Patient's toe fracture is already well-managed, [facility] drug screen already performed and orthopedics appointment scheduled for later today. Patient provided work note and advised follow-up with orthopedic appointment for further management of toe fracture. Discussed patient with Dr. Cabrera. Undiagnosed new problem with uncertain prognosis? @ -No Drug Therapy requiring intensive monitoring for toxicity (Heparin, Nitro, Insulin, Cardizem)? @ -No Were any procedures done? @ -No Diagnosis/symptom? @ -[facility], left second toe fracture Acute, or Chronic, or Acute on Chronic? @ -Acute Uncomplicated (without systemic symptoms) or Complicated (systemic symptoms)? @ -Uncomplicated Side effects of treatment? @ -No Exacerbation, Progression, or Severe Exacerbation? @ -No Poses a threat to life or bodily function? How? (Chest pain, [place], [place], pneumonia, PE, COPD, DKA, ARF, appy, cholecystitis, CVA, Diverticulitis, Homicidal, Suicidal, threat to staff... and all critical care pts) @ -No Disposition Clinical Impression: Fracture of second toe, left, closed Disposition: HOME SELF-CARE Condition: Good Instructions (If sedation given, give patient instructions): Toe Fracture (ED) Additional Instructions: Follow-up with orthopedic appointment later today for ongoing evaluation and management of toe fracture. May return to work with standing as tolerated Is patient prescribed a controlled substance at d/c from ED?: No Referrals: Royal Mann MD [Primary Care Provider] - 1-2 days Time of Disposition: 12:06
[2024-10-27 13:06] VITALS: BP 124/86; PULSE 94; RESP 16
== END 2024-10-27 13:05 | disposition home or self-care (01) ==
LOC: EC 11:12
DX: S92.912A Unspecified fracture of left toe(s), initial encounter for closed fracture (principal); Z88.5 Allergy status to narcotic agent; Z91.018 Allergy to other foods; W20.8XXA Other cause of strike by thrown, projected or falling object, initial encounter
CPT/HCPCS: 99283